=== PATIENT | female | born 1970 | race Caucasian/White ===

== ENCOUNTER 2020-07-20 09:00 | Outpatient (RCR) | payer OTHER, SELFPAY ==
--- NOTE | 2020-05-10 09:09 | OTOPEVAL ---
OCCUPATIONAL THERAPY EVALUATION 05/10/2020 Thank you for referring Yana Dixon to [facility].? The patient is scheduled to be seen for therapy?2x/week for 3 weeks. Please review, sign, date and return this plan of care NAA. I agree with and certify that the following plan of care is medically necessary. Referring Physician Date Referring Provider: Lise Mejía NP *OT Outpatient Evaluation Start: 05/10/20 08:04 Freq: Status: Active Protocol: Document 05/10/20 08:05 PIETER (Rec: 05/10/20 08:42 PIETER [email or web address]) Therapy Assessment Status Assessment Status Assessment Status Evaluation Evaluation Information Problem Diagnosis (R) radial collateral ligament strain Onset Sep 2019 Cause Overuse Subjective Information Patient reports lifting Query Text:As Reported By Patient/ weights and then playing Family tennis right after. She has been having lateral elbow pain since. She has difficulties with gripping, lifting, swinging a tennis racket, helping her mom put on arianna hose. Diagnostic Tests X-Rays For This Problem Yes: Negative for acute abnormality Pain Assessment Timing of Pain Assessment Timing of Pain Assessment Assessment Pain Scale Pain Scale Used Numeric (1 - 10) Self Report Pain Assessment Right Elbow(s) Reported Pain Level 0 Pain Description Aching Lowest Pain Intensity 0 Greatest Pain Intensity 6 Pain Aggravating Factors ADL's Other Pain Aggravating Factors Gripping, lifting Pain Score Pain Score 0: Self Report Upper Extremity Range of Motion General Upper Extremity Range of Motion Reason Not Measured WNL/Right Upper Extremity Muscle Strength Testing Scapular/Shoulder Right Shoulder Flexion Strength 5 Normal Shoulder Extension Strength 5 Normal Shoulder Abduction Strength 5 Normal Shoulder Adduction Strength 5 Normal Elbow/Forearm Right Elbow Flexion Strength 5 Normal Elbow Extension Strength 5 Normal Forearm Pronation Strength 5 Normal Forearm Supination Strength 5 Normal Elbow/Forearm Strength Comments (+) pain with supination, rated at 2/10 Wrist Strength Right Wrist Flexion Strength 5 Normal Wrist Extension Strength 5 Normal Wrist Radial Deviation 5 Normal Wrist Strength Comments (+) pain with wrist extension and RD Hand Gri
--- NOTE | 2020-05-30 09:36 | OTOPEVAL ---
OCCUPATIONAL THERAPY RE-EVALUATION REPORT 05/30/2020 Thank you for referring Yana Dixon to [facility]. Continued therapy indicated to progress strengthening and to continue with pain mgmt techniques to facilitate optimal functional use of the right UE.? The patient is scheduled to be seen for therapy? 2x/week for 4weeks. Please review, sign, date and return this plan of care NAA. I agree with and certify that the following plan of care is medically necessary. Referring Physician Date Referring Provider: Lise Mejía NP Therapy Assessment Status Assessment Status Assessment Status Re-evaluation Evaluation Information Problem Diagnosis (R) radial collateral ligament strain Additional Evaluation Detail Felicita has been participating in outpatient OT x3 weeks for right lateral elbow pain. Treatments have consisted of utilizing modalities for pain and inflammation, body mechanics education to reduce varus strain on the right elbow, HEP education, and manual therapy. Subjective Information Patient reports less pain Query Text:As Reported By Patient/ since start of care. She Family specifically notes being able to use her hand to open a jar, soda bottle, and weight lift without being so guarded. She reports that she has returned to doing light activities without pain, but heavy tasks continue to cause pain in the elbow. She also reports good understanding of proper body mechanics while weight lifting to avoid varus stress on the right elbow. Pain Assessment Timing of Pain Assessment Timing of Pain Assessment Re-assessment Pain Scale Pain Scale Used Numeric (1 - 10) Self Report Pain Assessment Right Elbow(s) Reported Pain Level 0 Pain Description Aching,Dull Lowest Pain Intensity 0 Greatest Pain Intensity 5 Pain Aggravating Factors Lifting Other Pain Aggravating Factors heavy lifting, light activities no longer cause 5/ 10 pain like before Pain Relief Interventions Used By Heat,Inactivity/Rest Patient Pain Score Pain Score 0: Self Report Upper Extremity Range of Motion General Upper Extremity Range of Motion Reason Not
--- NOTE | 2020-06-27 08:04 | OTOPEVAL ---
OCCUPATIONAL THERAPY RE-EVALUATION REPORT 06/27/2020 Thank you for referring Yana Dixon to [facility].? The patient is scheduled to be seen for continued therapy? 1-2x/week for 3 weeks. Please review, sign, date and return this plan of care NAA. I agree with and certify that the following plan of care is medically necessary. Referring Physician Date Referring Provider: Lise Mejía NP *OT Outpatient Evaluation Evaluation Information Problem Diagnosis (R) radial collateral ligament strain Onset Sep 2019 Cause Overuse Additional Evaluation Detail Felicita has been participating in outpatient OT x7 weeks for right lateral elbow pain. Treatments have consisted of utilizing modalities for pain and inflammation, body mechanics education to reduce varus strain on the right elbow, HEP education, and manual therapy. Subjective Information Patient reports that she has Query Text:As Reported By Patient/ been having less pain while Family increasing (R) UE use. She states that with ADLs her pain gets to 1/10 at worst . She also played pickleball on Thursday with residual pain rated at 3/10 which resolved quickly. She reports that being able to hang clothes in her closet with the (R) UE no longer is painful. She also notes being able to return to normal weight lifting without elbow pain. Pain Assessment Timing of Pain Assessment Timing of Pain Assessment Re-assessment Pain Scale Pain Scale Used Numeric (1 - 10) Self Report Pain Assessment Right Elbow(s) Reported Pain Level 0 Lowest Pain Intensity 0 Greatest Pain Intensity 4 Pain Score Pain Score 0: Self Report Additional Pain Score Comments Patient reports at worst pain experienced while playing pickleball. With light ADLs, her pain at the most is rated at 2/10. Upper Extremity Range of Motion General Upper Extremity Range of Motion Reason Not Measured WNL/Right Upper Extremity Muscle Strength Testing Elbow/Forearm Right Elbow Flexion Strength 5 Normal Elbow Exte
--- NOTE | 2020-07-20 09:36 | OTOPEVAL ---
OCCUPATIONAL THERAPY RE-EVALUATION AND DISCHARGE NOTE 07/20/2020 Patient presents for re-evaluation of right elbow LCL ligament strain after 10 weeks of therapy. She has progressed to having no pain with varus stress to the elbow and has resumed weight lifting. She continues to be guarded, however this is recommended as she could easily reinjure. It is also recommended that she ease back into pickle ball and not return to tennis until she is able to play pickle ball at 100%. Discharging from OT today with therapy goals met and with the patient independent with all materials. Thank you for referring Yana Dixon to [facility].? Please review, sign, date and return this Discharge Note NAA. I agree with and certify that the following plan of care is medically necessary. Referring Physician Date Referring Provider: Lise Mejía NP *OT Outpatient Evaluation Start: 05/10/20 08:04 Freq: Status: Active Protocol: Document 07/20/20 09:03 PIETER (Rec: 07/20/20 09:35 PIETER [email or web address]) Evaluation Information Problem Diagnosis (R) radial collateral ligament strain Onset Sep 2019 Cause Overuse Additional Evaluation Detail Felicita has been participating in outpatient OT x10 weeks for right lateral elbow pain. Treatments have consisted of utilizing modalities for pain and inflammation, body mechanics education to reduce varus strain on the right elbow, HEP education, strengthening, and manual therapy. Subjective Information Patient reports that she has Query Text:As Reported By Patient/ been having no pain with light Family to moderately heavy ADLs. She reports that being able to hang clothes in her closet with the (R) UE no longer is painful. She continues to be guarded with the activities. She has returned to normal weight lifting without pain also. Pain Assessment Timing of Pain Assessment Timing of Pain Assessment Re-assessment Pain Scale Pain Scale Used Numeric (1 - 10) Self Report Pain Assessment Right Elbow(s) Reported Pain Level 0 Lowest Pain Intensity 0 Greatest Pain Intensity 3 Pain Aggravating Factors Lifting Pain Score Pain Score 0: Self Report Additional Pain Score Comments Had a lengthy discussion with the patient today regarding
== END 2020-07-20 12:21 | disposition home or self-care (01) ==
LOC: ANHOT 09:00
PROVIDERS: PCP Family Medicine
DX: M25.521 Pain in right elbow (principal)
CPT/HCPCS: 97018; 97035; 97110; 97140; 97165

== ENCOUNTER 2021-11-07 08:19 | Outpatient (CLI) | payer OTHER, SELFPAY ==
--- NOTE | ~2021-11-07 | US_ITS ---
EXAMINATION: US art doppler w press LE BI DATE: 11/07/2021 09:39 INDICATION: Peripheral arterial occlusive disease to the bilateral lower limbs TECHNIQUE: Segmental pressures and plethysmographic and Doppler waveforms of the brachial and lower e xtremity arteries were obtained. COMPARISON: None. FINDINGS: Right and left brachial artery pressures of 118 mm Hg and 127 mm Hg, respectively, are concordant (no rmal difference <= 30 mmHg). The right and left high-thigh pressure indices are 1.39 and 1.56, respec tively (normal > 1.2). The right ankle-brachial index (KELSEA) is 1.20 (normal >= 0.9-1). The right great toe-brachial index (T BI) is 0.56 (normal >= 0.6-0.8). The right lower extremity segmental pressure gradients are increased between the right dorsalis pedis artery and each of the right [id number] popliteal artery, the r ight posterior tibial artery and the contralateral left dorsalis pedis artery (normal gradients <= 20 -30 mmHg between adjacent levels on the same leg or the same levels on the two legs). Arterial wavefo shaquille are triphasic with brisk systolic upstrokes throughout the arteries of the right lower limb. The left KELSEA is 1.25. The left TBI is 0.61. The left lower extremity segmental pressure gradients are normal. Arterial waveforms are triphasic with brisk systolic upstrokes throughout the arteries of th e left lower limb. IMPRESSION: 1. Mild arterial occlusive disease with normal bilateral ABIs but mildly decreased right and borderli ne left TBIs. Reviewed, dictated and finalized at location [facility] IMPRESSION: 1. Mild arterial occlusive disease with normal bilateral ABIs but mildly decrea sed right and borderline left TBIs.
== END 2021-11-07 08:20 | disposition home or self-care (01) ==
PROVIDERS: PCP Family Medicine; Visit Provider Podiatrist Foot & Ankle Surgery
DX: I73.9 Peripheral vascular disease, unspecified (principal)
CPT/HCPCS: 93923

== ENCOUNTER 2024-12-20 07:51 | Outpatient (CLI) | payer OTHER, SELFPAY ==
--- NOTE | ~2024-12-20 | US_ITS ---
EXAMINATION: US art doppler w press LE BI DATE: 12/20/2024 08:45 INDICATION: Peripheral arterial occlusive disease. TECHNIQUE: Segmental pressures and plethysmographic and Doppler waveforms of the brachial and lower e xtremity arteries were obtained. COMPARISON: None. FINDINGS: Right and left brachial artery pressures of 139 mm Hg and 149 mm Hg, respectively, are concordant (no rmal difference <= 30 mmHg). The right ankle-brachial index (KLESEA) is 1.04 (normal >= 0.9-1). The right great toe-brachial index (T BI) is 0.89 (normal >= 0.6-0.8). Arterial waveforms are triphasic at the right common femoral artery and biphasic at the right popliteal, posterior tibial and dorsalis pedis arteries with brisk systolic upstrokes throughout. The left KELSEA is 1.05. The left TBI is 0.68. Arterial waveforms are triphasic at the left common femor al and popliteal arteries and biphasic at the left posterior tibial and dorsalis pedis arteries with brisk systolic upstrokes throughout. . IMPRESSION: 1. No significant arterial occlusive disease with normal bilateral ABIs and TBIs Reviewed, dictated and finalized at location B. IMPRESSION: 1. No significant arterial occlusive disease with normal bilateral ABIs and TBI s
--- OUTSIDE RECORDS SUMMARY | 2024-12-20 08:07 | XMS_ITS | Encounter Summary ---
Author Organization [facility] Address [facility] [place] [address] Care Team Providers Care Theatre Director Name Role Phone Ap Camarillo MD Primary Care Provider [phone] Carlos Baker MD Unavailable [phone] Shabnam Farnsworth MD Primary Care Provider Encounter Details Date Type Department Care Team (Late st Contact Info) Description 12/17/2016 Abstract [facility] Conversion , Generic Conversion, Social History Tobacco Use Types Packs/Day Years Used Date Smoking Tobacco: Former Cigarettes Q uit: 1997 Smokeless Tobacco: Never Alcohol Use Standard Drinks/Week Comments No 0 (1 standard drink = 0.6 oz pur e alcohol) Comments Unknown Sex and Gender Information Value Date Recorded Sex Assigned at Not on file 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 Gender Identity Not on file Sexual Orientation Not on file 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 on file Not on file Not on file documented as of this encounter Plan of Treatment Not on file documented as of this encounter Visit Diagnoses Not on filedocumented in this encounter Care Teams Theatre Director Relationship Specialty Start Date End Date Ap Camarillo MD PCP - General FAMILY PRACTICE 10/29/16 12/09/23 Shabnam Farnsworth MD [address] [place] [address] [place] [address] PCP - General FAMILY PRACTICE 12/10/23 Carlos Baker MD [facility]. [address] [address] Kvng Inspector Of Dredging CARDIOVASCULAR DISEASE 10/29/16 documented as of this encounter
--- OUTSIDE RECORDS SUMMARY | 2024-12-20 08:07 | XMS_ITS | Clinical Summary ---
Author Organization [facility] [employer] Address [address] [facility] [place] [address] Care Team Providers Care Engraver Automatic Name Role Phone Shabnam Farnsworth MD Primary Care Provider [phone] Source Comments [facility] [employer],non-owned Affiliates and Associated Physician Practices is amultiple site organization consisting of ambulatory clinics and hospital sitesin [place], [place], [place] and [place]. This disclosure is being madepursuant to the Care Everywhere program and may not contain all information available regarding this patient. Last updated 18.[facility] [employer] Allergies Active Allergy Reactions Criticality Noted Date Comments Benzoyl Peroxide Swelling,Skin Reactions 2023 Sulfa Drugs Urticaria Medium 05/23/2024 Medications * Be aware that medications may not be up to date on this document. Alwaysverify current medications with the patient. Medication Sig Dispensed Refills Start Date End Date Status losartan (Cozaar) 50 MG tablet Take 1 (one) tablet by mouth once daily 04/11/2024 Active levothyroxine (Synthroid) 137 MCG tablet Take 1 (one) tablet by mouth daily before breakfast 01/21/2024 Active venlafaxine XR 24hr (Effexor XR) 150 MG capsule Take 1 (one) capsule by mouth once daily Active ALPRAZolam (Xanax) 0.25 MG tablet Take 1 (one) tablet by mouth 2 times daily as needed 02/16/2024 Active cetirizine (Cetirizine HCl Childrens) 5 MG/5ML Take 5 mL by mouth once daily Active melatonin 1 MG tablet Take 1 (one) tablet by mouth at bedtime Active Multiple Vitamin (Multi-Vitamin) TABS Take 1 (one) tablet by mouth once daily Active tamsulosin (Flomax) 0.4 MG capsule Take 1 (one) capsule by mouth once daily At the same time every day after a meal. 90 capsule 06/02/2024 Active Active Problems Problem Noted Date Diagnosed Date Hypothyroidism 07/16/2020 Overview (05/23/2024): Last Assessment & Plan: TSH normal. Continue levothyroxine 137 mcg daily. Asymptomatic. Will get TSH reflex. Dyslipidemia 04/23/2020 Essential hypertension 04/23/2020 Overview (05/23/2024): Last Assessment & Plan: Normotensive and controlled. Her blood pressure has been under control since she lost weight. She was on metoprolol succinate which was discontinued last year by her sheet cutting operator. Advised to continue low-cholesterol/salt diet. Exercise and stay active. Monitor BP once in a while. She is a nurse. Obstructive sleep apnea 12/13/2018 Overview (05/23/2024): Last Assessment & Plan: Patient stopped using her CPAP machine since she lost weight. She continues to weigh around 190 pounds from 290 pounds and feels good about it. States she sleeps well with more energy. Anxiety 09/16/2018 Overview (05/23/2024): Last Assessment & Plan: In good spirits. She seldom takes Xanax. She takes it as needed whenever she is very anxious. Last Assessment & Plan: Stable and controlled. In good spirits. Continue Effexor as ordered. She takes Xanax as needed only and very occasionally and not to be abused. Aware of adverse effects. Depression 09/16/2018 Overview (05/23/2024): Last Assessment & Plan: Patient has been having some on and off mood swings lately. Effexor was increased to 150 mg daily from 75 mg daily and so far is doing well with increased dose. Denies suicidal ideation and self-harm. Last Assessment & Plan: In good spirits. Denies any suicidal ideation/self-harm. Continue Effexor 150 mg daily. Mixed hyperlipidemia 09/16/2018 Overview (05/23/2024): Last Assessment & Plan: Lipid panel well controlled. Patient is very active. She watches her diet closely and strictly. She lost tremendous weight from 290 to 190 now. Advised to continue with diet and exercise. We will continue to monitor. Last Assessment & Plan: Last lipid panel better. LFTs normal. Not any statins. Continue diet and exercise. Will get routine blood test/labs. Consider statins if indicated. CPAP (continuous positive airway pressure) depen dence 12/28/2017 Bladder pain 01/22/2017 Increased frequency of urination 01/22/2017 Arthralgia of hip 01/22/2017 Urinary urgency 01/22/2017 Asymptomatic hyperuricemia 01/31/2014 Elevated ALT measurement 01/31/2014 Obesity 01/13/2014 Esophageal reflux 01/03/2013 Overview (05/23/2024): Last Assessment & Plan: Well-controlled. She only takes OTC Nexium as needed. She has been doing well since she lost weight. Continue GERD precautions. Last Assessment & Plan: Stable and controlled. Currently now off PPIs and doing well without. She takes OTC antacid as needed. Continue GERD precautions. 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 Social History Tobacco Use Types Packs/Day Years Used Date Smoking Tobacco: Former Cigarettes Tobacco Cessation:Counseling Given: No Alcohol Use Standard Drinks/Week Comments Not Currently 0 (1 standard drink = 0.6 oz pur e alcohol) Sex and Gender Information Value Date Recorded Sex Assigned at Female 05/22/2024 7:04 PM CDT Gender Identity Female 05/22/2024 7:04 PM CDT Sexual Orientation Not on file Last Filed Vital Signs Vital Sign Reading Time Taken Comments Blood Pressure 100/46 05/23/2024 3:39 PM CDT Pulse 73 05/23/2024 3:39 PM CDT Temperature 36.3 C (97.3 F) 05/23/2024 3:39 PM CDT Respiratory Rate - - Oxygen Saturation 99% 05/23/2024 3:39 PM CDT Inhaled Oxygen Concentration - - Weight 100.1 kg (220 lb 9.6 oz) 05/23/2024 3:39 PM CDT Height 172.7 cm (5' 8 ) 05/23/2024 3:39 PM CDT Body Mass Index 33.54 05/23/2024 3:39 PM CDT Plan of Treatment Health Maintenance Due Date Last Done Comments COLOGUARD (AGES 45-75) - COLON CA SCREENING 1968 COLON MONITORING 1968 COLONOSCOPY - COLON CA SCREENING 1968 CT COLONOGRAPHY - COLON CA SCREENING 1968 Colorectal Cancer Screening 1968 FIT - COLON CA SCREENING 1968 FLEX SIG - COLON CA SCREENING 1968 PAP SMEAR 1968 HIV SCREENING 02/07/1983 HEPATITIS C SCREENING 02/03/1986 DTAP/TDAP/TD VACCINES (1 - Tdap) 02/07/1987 HEPATITIS B VACCINE (1 of 3 - 19+ 3-dose series) 02/07/1987 PNEUMOCOCCAL VACCINE 50+ (1 of 1 - PCV) 02/07/2018 ZOSTER VACCINE (1 of 2) 02/07/2018 SCREENING FOR DIABETES 05/24/2024 COVID-19 VACCINE ( season) 2024 07/30/2021, 11/16/2020, 10/26/2020 INFLUENZA VACCINE (#1) 2024 , 07/16/2020, 07/06/2018, Additional history exists DEPRESSION SCREENING 09/28/2024 MAMMOGRAM 12/02/2025 12/03/2023, 03/0 03/2024, 12/03/2023, Additional history exists LIPID TESTING 03/23/2029 03/23/2024 HIB VACCINE Aged Out No longer eligi ble based on patient's age to complete this topic HPV VACCINE Aged Out No longer eligi ble based on patient's age to complete this topic MENINGOCOCCAL (Group B) VACCINE SHARED DECISION-MAKING Aged Out No longer eligible based on patient's age to complete this topic MENINGOCOCCAL GROUPS A/C/Y/W VACCINE Aged Out No longer eligible based on patient's age to complete this topic Care Teams Engraver Automatic Relationship Specialty Start Date End Date Shabnam Farnsworth MD [facility] [facility], [address] [facility] [address] [place], [place] [id number] PCP - General Family Medicine 05/20/24
--- OUTSIDE RECORDS SUMMARY | 2024-12-20 08:07 | XMS_ITS | CONTINUITY OF CARE DOCUMENT ---
Author Name pramod benavidez Address Unknown Organization [facility] Address [address] [facility] [address] [place] [address] Phone [phone] Care Team Providers Care Diagnostic Assistant Name Role Phone Donita Berkowitz MD Unavailable Donita Berkowitz MD Unavailable INSURANCE PROVIDERS Payer name Policy type / Coverage type [place] red libertarian [email or web address] insurance [employer] [id number] TREATMENT PLAN Date Name Complete Echo
--- OUTSIDE RECORDS SUMMARY | 2024-12-20 08:07 | XMS_ITS | Encounter Summary ---
Author Organization [facility] Address [facility] [place] [address] Care Team Providers Care Long Haul Truck Driver Name Role Phone Carlos Baker MD Unavailable [phone] Shabnam Farnsworth MD Primary Care Provider [phone] Encounter Details Date Type Department Care Team (Late st Contact Info) Description 02/01/2024 [employer] Message Enc [facility] Family Medicine - [address], [address] [place] [id number] Shabnam Farnsworth MD [address] [facility] [address] [place] [address] Ascending aortic aneurysm Social History Tobacco Use Types Packs/Day Years Used Date Smoking Tobacco: Former Cigarettes 1 5 0 09/28/1992 - 09/28/1997 Passive Smoke Exposure: Past Smokeless Tobacco: Never Comments:na Passive Exposure Comments:cigarette smoker Alcohol Use Standard Drinks/Week Comments No 0 (1 standard drink = 0.6 oz pur e alcohol) PHQ-2 Answer Date Recorded Patient Health Questionnaire-2 Score 0 12/10/2023 Comments No Sex and Gender Information Value Date Recorded Sex Assigned at Not on file 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 Shabnam Farnsworth Sent: 02/01/2024 3:55 PM CDT Subject: Ascending aortic aneurysm Thank you for commenting Dr. Farnsworth. I did have some concerns/questions. I had a brother who from a brain aneurysm, would this put me at greater risk? 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 Does that put me at greater risk? This aneurysm was no where kit found in 201 7 and is now 4.2 cm. Does that seem fast growing to you? In 2018 I started a wellness journey and have stayed mostly on track since. I just don???t know why this would have happened? Lastly, I like to lift weights and take long hikes in remote areas. Should I curtail my activities? What about cardio activities? Sorry this is a lot. If you???d rather I make an appointment just say so. Thanks so much! documented in this encounter Plan of Treatment Not on file documented as of this encounter Visit Diagnoses Not on filedocumented in this encounter Additional Health Concerns Assessment Noted Time PHQ-9 Depression Total Score: 3 12/10/19 24 4:43 PM CDT documented as of this encounter Care Teams Long Haul Truck Driver Relationship Specialty Start Date End Date Shabnam Farnsworth MD [address] [place] [address] [place] [address] PCP - General FAMILY PRACTICE 12/10/23 Carlos Baker [facility] [address] [place] [address] [place] Test Engineering Technician CARDIOVASCULAR DISEASE 10/29/16 documented as of this encounter
--- OUTSIDE RECORDS SUMMARY | 2024-12-20 08:07 | XMS_ITS | Encounter Summary ---
Author Organization [facility] Address [address] [place] [id number] Care Team Providers Care Bone Plant Supervisor Name Role Phone Ap Camarillo MD Primary Care Provider [phone] Carlos Baker MD Unavailable [phone] Shabnam Farnsworth MD Primary Care Provider [phone] Encounter Details Date Type Department Care Team (Late st Contact Info) Description 12/19/2016 Abstract [facility] AT [address] [address] Shine Mcknight MA Social History Tobacco Use Types Packs/Day Years Used Date Smoking Tobacco: Former Cigarettes Q uit: 1997 Smokeless Tobacco: Never Alcohol Use Standard Drinks/Week Comments No 0 (1 standard drink = 0.6 oz pur e alcohol) Comments Unknown Sex and Gender Information Value Date Recorded Sex Assigned at Not on file 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 Gender Identity Not on file Sexual Orientation Not on file 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 on file Not on file Not on file documented as of this encounter Plan of Treatment Not on file documented as of this encounter Procedures Procedure Name Priority Date/Time Associated Diagnosis Comments COMPREHENSIVE METABOLIC PANEL Routine 09/14/2017 HEMOGLOBIN, GLYCOSYLATED Routine 09/14/2017 THYROID STIM HORMONE TSH Routine 09/14/2017 LIPID PANEL Routine 11/11/2016 documented in this encounter Results * COMPREHENSIVE METABOLIC PANEL (09/14/2017) SODIUM S/P/B 141 POTASSIUM S/P/B 4.6 CO2 26 CHLORIDE S/P/B 109 GLUCOSE 112 mg/dL CALCIUM S/P/B 9.1 BUN 10 CREATININE S/P/B 0.77 0.5 - 1.0 EGFR AFR. AMER. >60 <=90 EGFR NON-AFR. AMER. >60 <=90 ALKALINE PHOSPHATASE S/P/B 80 ALT 32 AST 21 BILIRUBIN TOTAL S/P/B 0.7 ALBUMIN S/P/B 4.0 3.5 - 5.0 TOTAL PROTEIN S/P/B 6.4 09/14/2017 [facility] Final Result * THYROID STIM HORMONE, TSH (09/14/2017) TSH 0.358 09/14/2017 [facility] Final Result * HEMOGLOBIN, GLYCOSYLATED (09/14/2017) HGB A1C 5.8 09/14/2017 [facility] Final Result * LIPID PANEL (11/11/2016) CHOLESTEROL 234 HDL 37 TRIGLYCERIDES 209 LDL (CALCULATED) 155 11/11/2016 [facility] Final Result documented in this encounter Visit Diagnoses Not on filedocumented in this encounter Care Teams Bone Plant Supervisor Relationship Specialty Start Date End Date Ap Camarillo MD PCP - General FAMILY PRACTICE 10/29/16 12/09/23 Shabnam Farnsworth MD [address] [place] [address] [address] [place] [address] PCP - General FAMILY PRACTICE 12/10/23 Carlos Baker MD Three [facility]. [address] [place] [address] [place] Vocational Nursing Instructor CARDIOVASCULAR DISEASE 10/29/16 documented as of this encounter
--- OUTSIDE RECORDS SUMMARY | 2024-12-20 08:07 | XMS_ITS | Encounter Summary ---
Author Organization [facility] Address [address] [place] [address] Care Team Providers Care Paper Cap Machine Operator Name Role Phone Carlos Baker MD Unavailable [phone] Shabnam Farnsworth MD Primary Care Provider [phone] Encounter Details Date Type Department Care Team (Late st Contact Info) Description 04/28/2024 [employer] Message Enc [facility] Family [facility] - [place] 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 [address] [place], [place] [id number] [place] Urology Surgeon CARDIOVASCULAR DISEASE 10/29/16 documented as of this encounter
--- OUTSIDE RECORDS SUMMARY | 2024-12-20 08:07 | XMS_ITS | Clinical Summary ---
Author Organization [facility] Address [address] [address] Care Team Providers Care Supervisor [employer] Name Role Phone Adi Recio MD Unavailable [phone] Stephanie York MD Unavailable [phone] Shabnam Farnsworth MD Primary Care Provider + Lexi Escobar RN Unavailable Albina vailable Allergies Active Allergy Reactions Criticality Noted Date Comments Benzoyl Peroxide Dermatitis,Rash,Oth er (See comments),Swelling Medium 10/24/1985 Other Reaction(s): Skin Reactions Epinephrine Other (See comments) Low 07/28/2018 Cannot tolerate involuntary shaking, uses Lido without Epi at dentist Shellfish Derived Other (See comments) Low 11/19/2003 Sulfa (Sulfonamide Antibiotics) Hives,Itching,Rash, Other (See comments) High 05/19/1994 Reaction: Hives, Other Reaction(s): Other (see comments) Reaction: Hives, Reaction: Hives, Medications ALPRAZolam (XANAX) 0.25 mg tablet TAKE 1 TABLET 3 TIMES DAILY NEEDED. Active venlafaxine XR (EFFEXOR-XR) 150 mg 24 hr capsule Take 1 capsule (150 mg total) by mouth daily 2 Active cetirizine (ZyrTEC) 1 mg/mL syrup Take 5 mL (5 mg total) by mouth daily Active estradioL (ESTRACE) 0.01 % (0.1 mg/gram) vaginal cream APPLY 1 GRAM VAGINALLY DAILY 4 Active losartan (COZAAR) 50 mg tablet Take 1 tablet (50 mg total) by mouth daily 4 Active melatonin tablet Take 20 tablets (20 mg total) by mouth daily Active pravastatin (PRAVACHOL) 10 mg tablet 4 Active levothyroxine (SYNTHROID) 137 mcg tablet 5 Active Active Problems Problem Noted Date Diagnosed Date Infiltrate of lower lobe of right lung present on imaging study 10/26/2024 Sjogren's syndrome, with unspecified organ invol vement 10/18/2024 Gastric diverticulum 10/18/2024 Dyslipidemia 04/23/2020 Chest pain 04/23/2020 Palpitations 04/23/2020 H/O mammogram 04/23/2020 Essential hypertension 04/23/2020 Overview (04/23/2020): Last Assessment & Plan: Normotensive and controlled. Her blood pressure has been under control since she lost weight. She was on metoprolol succinate which was discontinued last year by her linter operator. Advised to continue low-cholesterol/salt diet. Exercise and stay active. Monitor BP once in a while. She is a nurse. Papanicolaou smear 04/23/2020 Obstructive sleep apnea 12/13/2018 Overview (04/23/2020): Last Assessment & Plan: Patient stopped using her CPAP machine since she lost weight. She continues to weigh around 190 pounds from 290 pounds and feels good about it. States she sleeps well with more energy. Depression 09/16/2018 Overview (04/23/2020): Last Assessment & Plan: Patient has been having some on and off mood swings lately. Effexor was increased to 150 mg daily from 75 mg daily and so far is doing well with increased dose. Denies suicidal ideation and self-harm. Anxiety 09/16/2018 Overview (04/23/2020): Last Assessment & Plan: In good spirits. She seldom takes Xanax. She takes it as needed whenever she is very anxious. Other specified hypothyroidism 09/16/2018 Overview (04/23/2020): Last Assessment & Plan: Most recent TSH normal. Continue levothyroxine 125 mcg daily. Will get routine blood test next visit including TSH. Mixed hyperlipidemia 09/16/2018 Overview (04/23/2020): Last Assessment & Plan: Lipid panel well controlled. Patient is very active. She watches her diet closely and strictly. She lost tremendous weight from 290 to 190 now. Advised to continue with diet and exercise. We will continue to monitor. Mammogram abnormal 07/28/2018 CPAP (continuous positive airway pressure) depen dence 12/28/2017 Post-nasal drip 07/03/2017 Myofascial pain 01/22/2017 Pain in female pelvis 01/22/2017 Arthralgia of hip 01/22/2017 Bladder pain 01/22/2017 Increased frequency of urination 01/22/2017 Urinary urgency 01/22/2017 Acute sinusitis 11/24/2014 Acute laryngitis 11/24/2014 Hoarseness 11/24/2014 Serum potassium elevated 09/15/2014 Elevated ALT measurement 01/31/2014 Asymptomatic hyperuricemia 01/31/2014 Obesity 01/13/2014 Esophageal reflux 01/03/2013 Overview (04/23/2020): Last Assessment & Plan: Well-controlled. She only takes OTC Nexium as needed. She has been doing well since she lost weight. Continue GERD precautions. 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 Beat knee 06/24/2012 Knee pain 06/16/2012 Encounters Date Type Department Care Team Description 12/15/19 25 1:50 PM CDT - 12/15/19 25 11:59 PM CDT Hospital Encounter [facility] [address] [place] [address] Screening mammogram, encount er for Discharge Disposition: Discharge to home or self care 12/10/19 25 Telephone [facility] Ophthalmology [address] [place] [address] Cecy Holden MD new pt sched 12/08/19 25 Telephone [facility] with [facility] Physicians [address] [place] [address] Ana Mckeon NP 11/30/19 Telephone [facility] Neurosurgery [address] [facility] Floor 1, [address] [place] [address] Ana Mckeon NP 11/29/19 Telephone [facility] Neurology [address] [facility] [address] [place] [phone] Cameron Matthews MD 11/25/19 Telephone [facility] Neurology [facility] [facility] [address] [place] [phone] Cameron Matthews MD MRI RESULTS (MRI RESULTS ) 11/25/19 25 Orders Only [facility] Cardiothoracic Surgery [address] [place] [address] Medicine 8th Floor [address] Room [address] [place] [phone] Dariana Brothers MD Quadricuspid aortic valve (Primary Dx) 11/25/19 25 Orders Only [facility] Cardiothoracic Surgery [address] [place] [address] Advanced Medicine 8th Floor [address] Room [address] [place] [phone] Dariana Brothers MD Aortic valve insufficiency, etiology of cardiac valve disease unspecified (Primary Dx) 11/25/19 25 Documentation [facility] Pulmonary [address] [facility] Advanced [facility] 8th [place] [address] [place] [address] Janet Griffin MD 11/24/19 7:31 PM [facility]NER - 11/24/19 11:59 PM [facility] Hospital Encounter [facility] [address] [place] [address] Ocular migraine Discharge Disposition: Discharge to home or self care 11/23/19 3:58 PM [facility] SK[facility]NER - 11/23/19 11:59 PM [facility] Hospital Encounter [facility] [address] [place] [address] Discharge Disposition: Discharge to home or self care 11/23/19 11:00 AM [facility]NER Office Visit [facility] Surgery [address] [facility] [address] [place] [phone] Dariana Brothers MD Aneurysm of ascending aorta without rupture 11/23/19 25 Orders Only [facility] Cardiothoracic Surgery [address] [facility] Advanced Medicine 8th Floor [address] [address] [place] [address] Dariana Brothers MD Ascending aortic aneurysm, unspecified whether ruptured (Primary Dx) 11/21/19 25 Telephone [facility] Minimally Invasive Surgery [address] [place] [address] Medical Office Building [address] [place] [address] Dieter Correa MD PhD 11/16/19 12:00 PM [facility]INNER Procedure visit [facility] Neuro Sleep [address] [facility] 6th Floor [address] [place] [address] Obstructive sleep apnea 11/15/19 25 9:00 AM [facility]INNER Office Visit [facility] Neurology [facility] [address] [place] [address] aCmeron Matthews MD Empty sella (Primary Dx); Ocular migraine; Intracranial aneurysm 11/11/19 25 2:30 PM SL[facility]K SKINNER - 11/11/19 25 3:00 PM [facility]NER Surgery [facility] Digestive Disease [address] [address] Buck Baron MD ESOPHAGOGASTRODUODENOSCOPY oa/ls 11/11/19 25 2:09 PM [facility] SKINNER Anesthesia Event [facility] Digestive Disease [address] [address] Sudeep Sanchez MD 11/11/19 25 12:58 PM [facility]K SKINNER - 11/11/19 25 4:45 PM [facility]NER Hospital Encounter [facility] Digestive Disease [address] [address] Buck Baron MD Discharge Disposition: Discharge to home or self care 11/04/19 25 Telephone [facility] [address] [place] [address] Nicolasa Tariq RN GI PROCEDURE 7 DAY PRE CALL 11/04/19 Telephone [facility] Neurology [address] [facility] [address] [place] [phone] Provider, MD Stanislaw Scheduling Appointments (REFERRAL APPOINTMENT ) 10/26/19 11:00 AM [facility] SKINNER Office Visit [facility] Pulmonary [address] [facility] Advanced Medicine 8th [place] [address] [place] [address] Janet Griffin MD Obstructive sleep apnea (Primary Dx); Infiltrate of lower lobe of right lung present on imaging study; Autoimmune disease 10/26/19 10:37 AM SLUNK SKINNER - 10/26/19 11:59 PM [facility] SKINNER Hospital Encounter [facility] [address] [place] [address] Discharge Disposition: Discharge to home or self care 10/26/19 9:00 AM [facility]UNK SKINNER - 10/26/19 11:59 PM [facility]INNER Hospital Encounter [facility] Pulmonary [address] [place] [address] [address] [place] [address] Infiltrate of lower lobe of right lung present on imaging study Discharge Disposition: Discharge to home or self care 10/26/19 Orders Only [facility] Pulmonary [address] [place] [address] [facility] 8th [place] [address] [place] [address] Janet Griffin MD Infiltrate of lower lobe of right lung present on imaging study (Primary Dx) 10/25/19 Telephone [facility] [address] [place] [address] Patrizia Amador, RN GI Preprocedure 10/18/19 9:00 AM [facility]INNER Office Visit [facility] Neurosurgery [address] [place] [address] Advanced [facility] 6th [place] [address] [place] [address] Ana Mckeon NP Cerebral aneurysm, nonruptured; Sjogren's syndrome, with unspecified organ involvement; Nonintractable headache, unspecified chronicity pattern, unspecified headache type 10/18/19 7:11 AM SLUNK SKINNER - 10/18/19 11:59 PM [facility]NER Hospital Encounter [facility] [address] [place] [address] Infiltrate of lower lobe of right lung present on imaging study Discharge Disposition: Discharge to home or self care 10/18/19 Telephone [facility] ([facility]) - [facility] Minimally Invasive Surgery [address] [facility] 12th Floor, [place] [phone] Briseida Lexi, MA 10/18/19 Orders Only [facility]) - [facility] Minimally Invasive Surgery [address] [facility] 12th Floor, [place] [address] Dieter Correa MD PhD Gastric diverticulum (Primary Dx) 10/18/19 Telephone [facility] Neurosurgery [address] [facility] Floor 1, [address] [place] [address] Ana Mckeon NP 10/10/19 3:15 PM [facility] SKINNER Office Visit [facility] Surgery [id number] [place] [address] Medical Office Building [address] [place] [address] Reed Casanova MD Gastric diverticulum (Primary Dx); Fibromuscular dysplasia 10/10/19 Telephone [facility] Neurosurgery [facility] [facility] Floor 1, [address] [place] [address] Ana Mckeon NP 10/06/19 12:30 PM [facility] SKINNER Office Visit [facility] Neurosurgery [address] [place] [address] 6th [place] [address] [place] [address] Ana Mckeon NP Infiltrate of lower lobe of right lung present on imaging study (Primary Dx); Giant intracranial aneurysm; Diverticulum, gastric; Sjogren's syndrome, with unspecified organ involvement; Carotid artery aneurysm 09/30/19 1:21 PM SL[facility]K SKINNER - 09/30/19 11:59 PM [facility]K SKINNER Hospital Encounter [facility] Imaging and Radiology [address] [place] [address] Aneurysm of ascending aorta without rupture Discharge Disposition: Discharge to home or self care 09/30/19 1:15 PM SLUNK SKINNER - 09/30/19 11:59 PM [facility]INNER Hospital Encounter [facility] Vascular Lab [address] [place] [address] Carotid artery aneurysm Discharge Disposition: Discharge to home or self care 09/29/19 25 2:54 PM [facility] SKINNER - 09/29/19 11:59 PM [facility]NER Hospital Encounter [facility] [address] [place] [address] Discharge Disposition: Discharge to home or self care 09/26/20 24 Telephone [facility] Scheduling [address] [place] [address] BotelloBarbLiss 09/26/20 24 Orders Only [facility] Surgery [address] [facility] Medical Office Building [address] [place] [address] Reed Casanova MD Fibromuscular dysplasia (Primary Dx) from Last 3 Months Immunizations Immunization Administration Dates Next Due DTP 02/26/1973, 9,1968,04/18 Hep B Vaccine 06/23/2014,04/05/2012,03/05/2012 Influenza, Quadrivalent, Sherie l Culture-based MDCK, Preservative Free, Antibiotic Free, Intramuscular 07/06/2019 Influenza, Quadrivalent, Spl it, Preservative Free, Intramuscular 07/16/2020,07/06/2018,06/22/2017 Influenza, Trivalent, IM (MDV) 07/24/2014 Influenza, Unspecified 07/08/2024,08/13/2021 MMR 07/02/1998 Moderna SARS-CoV-2 Monovalen t Vaccination (12+ YRS) 10/26/2020 Mumps 04/09/1973 OPV 04/09/1973, 9,1968,06/20,1968 OPV, Unspecified 04/09/1973, 9,1968,06/20,1968 Rubella 08/09/1969 Td, adsorbed 07/02/1998,05/06/1983 Tdap 03/05/2012 Surgical History Surgery Date Site/Laterality Comments THYROIDECTOMY, PARTIAL Thyroid Surgery Substernal Thyroidectomy Partial - (Added by TW Conv) [place] CHOLECYSTECTOMY Cholecystectomy - (Added by TW Conv) CHOLECYSTECTOMY KNEE SURGERY 2010 and 2004 Bilateral meniscus BREAST BIOPSY 07/30/2018 Left BREAST BIOPSY 07/30/2018 Left BREAST BIOPSY 02/11/2019 Right Medical History Medical History Date Comments Hypertension Depression Overweight Thyroid disease Vitiligo Hyperlipidemia Hypothyroidism Raynaud's disease Restless leg syndrome FABY (generalized anxiety disorder) 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 followed by neurosurgeon Family History Medical History Relation Name Comments Heart disease Father Family history of cardiac disorder - (Added by TW Conv) Hypertension Father Family history of hypertension - (Added by TW Conv) Osteoporosis Father Family history of osteoporosis - (Added by TW Conv) Hypertension Mother Family history of hypertension - (Added by TW Conv) Osteoporosis Mother Family history of osteoporosis - (Added by TW Conv) Asthma Sister Family history of asthma - (Added by TW Conv) Relation Name Status Comments Father Mother Sister Social History Tobacco Use Types Packs/Day Years Used Date Smoking Tobacco: Former Smokeless Tobacco: Never Tobacco Cessation:Counseling Given: Not Answered Alcohol Use Standard Drinks/Week Comments Yes 0 (1 standard drink = 0.6 oz pur e alcohol) AUDIT-C Answer Date Recorded Q1: How often do you have a drink containing alcohol? Never 11/11/2024 Q2: How many drinks containi ng alcohol do you have on a typical day when you are drinking? Patient does not drink Q3: How often do you have si x or more drinks on one occasion? Never 11/11/2024 Personal Safety Answer Date Recorded Have you ever been in or are you currently in a harmful physical or emotional relationship or is someone making you feel afraid or unsafe? Denies 11/11/2024 Comments No Sex and Gender Information Value Date Recorded Sex Assigned at Not on file Legal Sex Female 8:57 AM SLUNK SKINNER Gender Identity Not on file Sexual Orientation Not on file Obstetrics History Last Filed Vital Signs Vital Sign Reading Time Taken Comments Blood Pressure 128/74 11/23/2024 11:43 AM [facility] SKINNER Pulse 88 11/23/2024 11:43 AM [facility]INNER Temperature 36.2 C (97.2 F) 11/11/2024 2:25 PM SLUNK SKINNER Respiratory Rate 16 11/15/2024 8:50 AM SLUNK SKINNER Oxygen Saturation 97% 11/23/2024 11:43 AM [facility]UNK SKINNER Inhaled Oxygen Concentration - - Weight 108 kg (238 lb) 11/24/2024 7:43 PM [facility]K SKINNER Height 172.7 cm (5' 8 ) 11/24/2024 7:43 PM [facility]UNK SKINNER Body Mass Index 36.19 11/24/2024 7:43 PM SLUNK SKINNER Plan of Treatment Health Maintenance Due Date Last Done Comments Cervical Cancer Screening 1968 Colon Cancer Screening-Colonoscopy 1968 Depression Screening 1968 Hepatitis C Screening 1968 Regular Well Visit/Exam 18-64 02/07/1986 Zoster Vaccine (1 of 2) 02/07/2018 DTaP/Tdap/Td Vaccine (6 - Td or Tdap) 03/05/2022 03/05/2012, 07/02/1998, 05/06/1983, Additional history exists Covid-19 Vaccine ( season) 2024 07/30/2021, 11/16/2020, 10/26/2020 Breast Cancer Screening-Mammogram 12/14/2025 12/14/2024, 12/03/2023, 09/08/2022, Additional history exists Hepatitis B Screening Completed 06/23/2014 , 04/05/2012, 03/05/2012 Influenza Vaccine Completed 07/08/2024, , 07/16/2020, Additional history exists Pneumococcal vaccine <65 Aged Out No longer eligible based on patient's age to complete this topic Procedures Procedure Name Priority Date/Time Associated Diagnosis Comments SCREENING MAMMOGRAM BILATERA L W KENNETH Schedule Routine, Read Routine (OP Routine) 12/14/2024 2:05 PM CDT Screening mammogram, encounter for MRI BRAIN W WO CONTRAST Schedule Routine, Read Routine (OP Routine) 11/24/2024 8:49 PM SL[facility]K SKINNER Ocular migraine US TRANSFER OF OUTSIDE FILMS Routine 3:58 PM [facility] SK[facility]NER PORTABLE/HOME SLEEP STUDY Routine 2024 10:00 PM [facility]UNK SKINNER Obstructive sleep apnea EGD 11/11/2024 2:08 PM [facility]K SK[facility]NER ESOPHAGOGASTRODUODENOSCOPY Open Access 11/11 2:08 PM SLUNK SKINNER Gastric diverticulum Special Needs Please complete before 12/14/24 XR CHEST PA LATERAL 2 VIEWS Schedule Routine, Read Routine (OP Routine) 10/26/2024 10:40 AM [facility]UNK SKINNER Infiltrate of lower lobe of right lung present on imaging study PULMONARY FUNCTION TEST (PFT) Routine 9:40 AM SLUNK SKINNER Infiltrate of lower lobe of right lung present on imaging study CTA HEAD NECK W WO CONTRAST Routine 09/29 8:08 AM SLUNK SKINNER Infiltrate of lower lobe of right lung present on imaging study POCT CREATININE - DEVICE Routine 025 7:29 AM SLUNK SKINNER US CAROTIDS DUPLEX BILATERAL Schedule Routine, Read Routine (OP Routine) 09/30/2024 2:49 PM [facility] SKINNER Carotid artery aneurysm CTA CHEST ABDOMEN PELVIS Schedule Routine, Read Routine (OP Routine) 09/30/2024 2:17 PM [facility] SKINNER Aneurysm of ascending aorta without rupture NEURO CT OUTSIDE REFERENCE Routine 09/29 2:54 PM SLUNK SKINNER Diagnosis unknown from Last 3 Months Results * Screening Mammogram Bilateral W Kenneth (12/14/2024 2:05 PM CDT) Anatomical Region Laterality Modality Breast Bilateral Mammography Narrative 12/15/2024 10:40 AM CDT Mammogram Technique: Bilateral Digital Breast Tomosynthesis, Bilateral C-view 2D Screening mammogram. Views obtained: bilateral craniocaudal and bilateral mediolateral oblique. Computer Aided Detection was performed. Mammogram Findings: The present examination has been compared to prior imaging studies performed at [facility] on 08/30/2021, 09/08/2022 and 12/03/2023. There are scattered areas of fibroglandular density. There is no suspicious abnormality in either breast. Impression: There is no mammographic evidence of malignancy. Annual screening mammography is recommended. OVERALL FINAL ASSESSMENT: BI-RADS CATEGORY 1: Negative. Procedure Note Mercy Vera MD - 12/15/2024 Mammogram Technique: Bilateral Digital Breast Tomosynthesis, Bilateral C-view 2D Screening mammogram. Views obtained: bilateral craniocaudal and bilateral mediolateral oblique. Computer Aided Detection was performed. Mammogram Findings: The present examination has been compared to prior imaging studies performed at [facility] on 08/30/2021, 09/08/2022 and 12/03/2023. There are scattered areas of fibroglandular density. There is no suspicious abnormality in either breast. Impression: There is no mammographic evidence of malignancy. Annual screening mammography is recommended. OVERALL FINAL ASSESSMENT: BI-RADS CATEGORY 1: Negative. us Self Screening Mammogram IMG MAMMO PROCEDURES Fi nal Result * MRI Brain W WO Contrast (11/24/2024 8:49 PM SLUNK SKINNER) Anatomical Region Laterality Modality Head and Neck N/A Magnetic Resonan ce 11/25/2024 11:4 4 AM [facility]UNK SKINNER Impressions 11/25/2024 12:20 PM [facility]UNK SKINNER Partially empty sella. Otherwise normal MRI of the pituitary gland. Dictated by: Lm Casarez M.D. The radiology attending physician has personally reviewed this study, and had reviewed and/or edited this written report and agrees with it. Electronically signed by: Kacy Lala M.D. Narrative 11/25/2024 12:20 PM [facility]NER EXAMINATION: Magnetic resonance imaging (MRI) of the brain and brainstem without and with contrast. HISTORY: 54 years-old Female with ocular migraine. Partially empty sella. TECHNIQUE: Multiplanar multi-weighted MRI of the brain and brainstem was performed without without and with intravenous contrast using the pituitary protocol. This included acquisitions showing dynamic contrast enhancement of the sella turcica in the coronal plane and a post-contrast T1-Stealth sequence. Contrast information: 20 mL Gadoterate Meglumine COMPARISON: CTA of head and neck 10/18/2024, 03/23/2024 FINDINGS: Mild posterior deviation of the infundibulum with inferior displacement of the diaphragm sella posteriorly. No abnormal enhancement or lesion in the pituitary. The optic chiasm and orbits are normal. There is no abnormal contrast enhancement. The scalp and calvarium are normal. The dural venous sinuses are patent. The corpus callosum is normal in shape and signal intensity. 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 There is no crowding of the brainstem. The brainstem and craniocervical junction are unremarkable. The ventricles are normal in size and position without evidence of hydrocephalus. The paranasal sinuses are normal. The visualized portions of the mastoids are unremarkable. The orbits appear normal. Normal flow voids are demonstrated in the carotid arteries and basilar artery. 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 Procedure Note Kacy Llaa MD - 11/25/2024 EXAMINATION: Magnetic resonance imaging (MRI) of the brain and brainstem without and with contrast. HISTORY: 54 years-old Female with ocular migraine. Partially empty sella. TECHNIQUE: Multiplanar multi-weighted MRI of the brain and brainstem was performed without without and with intravenous contrast using the pituitary protocol. This included acquisitions showing dynamic contrast enhancement of the sella turcica in the coronal plane and a post-contrast T1-Stealth sequence. Contrast information: 20 mL Gadoterate Meglumine COMPARISON: CTA of head and neck 10/18/2024, 03/23/2024 FINDINGS: Mild posterior deviation of the infundibulum with inferior displacement of the diaphragm sella posteriorly. No abnormal enhancement or lesion in the pituitary. The optic chiasm and orbits are normal. There is no abnormal contrast enhancement. The scalp and calvarium are normal. The dural venous sinuses are patent. The corpus callosum is normal in shape and signal intensity. 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 There is no crowding of the brainstem. The brainstem and craniocervical junction are unremarkable. The ventricles are normal in size and position without evidence of hydrocephalus. The paranasal sinuses are normal. The visualized portions of the mastoids are unremarkable. The orbits appear normal. Normal flow voids are demonstrated in the carotid arteries and basilar artery. 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 IMPRESSION: Partially empty sella. Otherwise normal MRI of the pituitary gland. Dictated by: Lm Casarez, M.D. The radiology attending physician has personally reviewed this study, and had reviewed and/or edited this written report and agrees with it. Electronically signed by: Kacy Lala M.D. us Cameron Matthews MD IMG MRI PROCEDURES Final Resul t * US Outside Reference (11/23/2024 3:58 PM [facility]) Impressions [facility] - 11/23/2024 3:58 PM [facility] These images are for Reference purposes only and have not been reviewed by [facility]. There will be no report generated by a [facility] Radiologist. Narrative RAD_PACS[facility] - 11/23/2024 3:58 PM [facility] EXAMINATION: Images For Reference Purposes Only us Dariana Brothers MD IMG US PROCEDURES Final Result [facility]PACS[facility] * PORTABLE/HOME SLEEP STUDY (11/16/2024 10:00 PM [facility]) Narrative Janet Griffin MD - 11/16/2024 10:00 PM [facility] Janet Griffin MD 11/25/2024 7:24 AM Portable/Home Sleep Study Date/Time: 11/16/2024 10:00 PM Performed by: Janet Griffin MD Authorized by: Janet Griffin MD us Janet Griffin MD SLEEP CENTER ORDERABLES Aurelia l Result * EGD (11/11/2024 2:08 PM [facility]) Anatomical Region Laterality Modality Other Narrative Procedure Note Buck Baron MD - 11/11/2024 2:08 PM [facility]ST [facility] Patient Name: Yana Dixon Procedure Date: 11/11/2024 2:08 PM Date of : 1970 Admit Type: Outpatient Age: 54 Gender: Female Attending MD: Buck Baron M.D. Room: [facility] ENDOSCOPY ROOM 9 Note Status: Finalized Procedure: Upper GI endoscopy Indications: Abnormal CT of the GI tract; Recent CT with gastric fundus diverticulum Referring MD: Dieter Correa M.D. Providers: Buck Baron M.D. Comorbidities See the other procedure note for documentation of comorbidities Medicines: Monitored Anesthesia Care Complications: No immediate complications. Estimated Blood Loss: Estimated blood loss: none. Procedure: Pre-Anesthesia Assessment: - Prior to the procedure, a History and Physicalwas performed, and patient medications, allergies and sensitivities were reviewed. The patient'stolerance of previous anesthesia was reviewed. - Immediately prior to administration ofmedications, the patient was re-assessed for adequacy to receive sedatives. The benefits, risks, and alternatives to theprocedure and sedation were discussed and informed consentwas obtained. The scope was passed under direct vision. The GIF [id number] endoscope was introduced through the mouth, and advanced to the second partof duodenum. The upper GI endoscopy was accomplished without difficulty. The patient tolerated the procedure well. Findings: The esophagus was normal with the gastroesophageal junction noted at41 cm from the incisors. A 40 mm non-bleeding diverticulum was found in the gastric fundus, roughly 3 cm distal to the gastroesophageal junction. This contained food residue that was cleared. Healthy appearing mucosa was noted. The stomach was otherwise normal save for scattered, small sessile polyps in the fundus/body with the endoscopic appearance of fundicgland polyps. The examined duodenum was normal. Impression: - Normal esophagus. - A 40 mm non-bleeding diverticulum was found inthe gastric fundus, roughly 3 cm distal to the gastroesophageal junction. This contained foodresidue that was cleared. Healthy appearing mucosa wasnoted. - The stomach was otherwise normal save forscattered, small sessile polyps in the fundus/body with the endoscopic appearance of fundic gland polyps. - Normal examined duodenum. - No specimens collected. Recommendation: - The patient will be observed post-procedure,until all discharge criteria are met. - Observe patient's clinical course. - Continue present medications. - Resume previous diet. - Return to referring physician as previously scheduled. - In the unusual situation that you developabdominal, bleeding or other significant problems in the days following this procedure please call [phone] ask for my nurse, Cassandra Silva. After hours and evenings please call [phone] and speak to theGI fellow promotion writer. Please tell the fellow that Dr. Baron did your procedure and that you were instructed to have the fellow call me or thephysician covering for me to discuss the management of your condition. If you have an urgent problem, please goto the nearest emergency room and have the ER doctorcall my office during the day or [facility] transfer ([phone]) center after hours and weekends to arrange admission or transfer to our facility. Attending Participation: I personally performed the entire procedure. Electronically signed by Buck Baron MD Buck Baron M.D. 11/11/2024 2:36:57 PM . Number of Addenda: 0 Note Initiated On: 11/11/2024 2:08 PM us Buck Baron MD ENDOSCOPY PROCEDURES Final Result * XR Chest Pa Lateral 2 Views (10/26/2024 10:40 AM [facility]) Anatomical Region Laterality Modality Body, Chest N/A Computed Radiogr aphy 10/26/2024 10:4 3 AM [facility] Impressions 10/26/2024 10:43 AM [facility] No prior radiographs are available for comparison. Lungs are clear. No pleural effusion. No pneumothorax. Normal heart size. Electronically signed by: Catherine Serrano M.D. Narrative 10/26/2024 10:43 AM [facility] EXAMINATION: 2 view chest radiograph Procedure Note Catherine Serrano MD - 10/26/2024 EXAMINATION: 2 view chest radiograph IMPRESSION: No prior radiographs are available for comparison. Lungs are clear. No pleural effusion. No pneumothorax. Normal heart size. Electronically signed by: Catherine Serrano M.D. Janet Griffin MD IMG XR PROCEDURES Final Resu lt * Pulmonary Function Test - (10/26/2024 9:40 AM [facility]) FVC PRE 4.07 L [facility] FVC %PRE PRED 117 % [facility] FEV1 PRE 3.15 L [facility] FEV1 %PRE PRED 114 % [facility] FEV1/FVC PRE 77.4 % [facility] DLCO PRE 26.5 ml/min/mmH g [facility] DLCO %PRE PRED 122 % [facility] Anatomical Region Laterality Modality PFT 10/26/2024 9:15 AM [facility] Narrative 10/26/2024 3:35 PM [facility] Table formatting from the original result was not included. [facility] Division of Pulmonary & Critical Care Medicine [address] [place] [address]; [address]; [place] [address]; [phone] Pulmonary Function Laboratory Pulmonary Stress Test Simple/Oxygen Assessment Patient: Yana Dixon Date: 10/26/2024 : 1970 Ht: 65 IN Wt: 236 LBS Time (min) Distance (ft)/ [place] O2 L/M SpO2 HR Lucas* BP FEV1 % Pred Rest: RA 98 77 0 115/68 3.15 114 % Walk/Bike: 1 RA 96 89 0 2 RA 97 92 0 3 RA 97 94 0 4 RA 97 97 0 5 RA 98 96 0 6 min 0 sec RA 98 100 0 Recovery: 1 RA 98 101 0 100/69 3.25 118% 3 RA 98 85 0 *Lucas rate of perceived exertion (1-10 dyspnea scale) Costa, CHEST 2003; 123:1408 Walk Test Summary: Six Minute Walk Distance: 1350 ft Six-minute Walk Work [distance (m) x body wt (kg)]: 08300 kg.m (normal >60,000kg.m) Oxygen required to maintain SpO2 greater than 90% during six minutes of walkin L/M Comments: O2A Interpretation: Breathing room air, SpO2 is normal at rest and during exercise sufficient to increase pulse, SpO2 is stable. On this basis, SpO2 is adequate at rest breathing room air and while walking breathing room air. This level of exercise is associated with no significant change of FEV1. By signing this report, the attending pulmonary physician certifies that he/she has personally reviewed and interpreted the graphic and numerical data associated with this pulmonary function study and has reviewed and /or edited a preliminary draft report and agrees with the written final report. PFT performed at:->[facility] Adult PFT Lab- [facility] Procedure:->Oxygen Assessment Titration Procedure:->Spirometry Procedure:->DLCO DLCO:->Spirometry Pulmonary Function Test Interpretation SPIROMETRY: Spirometry is normal. The flow volume loop is normal. DLCO: The diffusing capacity is increased. An increased diffusing capacity may be due to left ventricular failure, asthma, or obesity. Impression: There is no ventilatory defect. There is no impairment of alveolar gas exchange by DLCO. The attending pulmonary physician certifies a physician presence in the [facility] during the administration of aerosolized bronchodilator. The attending pulmonary physician certifies that he/she has reviewed and interpreted the graphic and numerical data of this pulmonary function study and agrees with the written final report. The lower limit of normal for PaO2 and %HbO2 is age dependent. However, the [facility] Pulmonary Function Laboratory defines hypoxemia as a PaO2 <56 mm Hg or a %HbO2 <89%. Starting on September of 2024 the [facility] Pulmonary Function Laboratory utilizes race neutral [employer] normative equations. us Janet D. Elias MD PFT ORDERABLES Final Result * CTA Head Neck W WO Contrast (10/18/2024 8:08 AM [facility]) Anatomical Region Laterality Modality Head and Neck N/A Computed Tomogra phy 10/18/2024 8:55 AM [facility] Impressions 10/18/2024 10:41 AM [facility] 1. No acute intracranial process. 2. 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 Dictated by: Mercy Spears MD, PhD. The radiology attending physician has personally reviewed this study, and had reviewed and/or edited this written report and agrees with it. Electronically signed by: Juice Floyd MD Narrative 10/18/2024 10:41 AM [facility] EXAMINATION: 1. Computed tomography angiography (CTA) of the head without and with contrast 2. Computed tomography angiography (CTA) of the neck with contrast HISTORY: 54-year-old female with a history of right cavernous carotid artery aneurysm. TECHNIQUE: CT of the head was performed with images acquired from skull base to vertex without intravenous contrast. Computed tomographic angiography was then obtained from the aortic arch to the vertex following the uneventful administration of intravenous contrast. 3D images were generated on a dedicated workstation. Contrast information: 93 mL Optiray-350 COMPARISON: Comparison is made to prior CT angiogram dated 03/23/2024. FINDINGS: HEAD: There is no acute intracranial hemorrhage. Ventricles are of normal size and morphology. No mass effect or midline shift is present. The case-white matter differentiation is normal. Partially empty sella. The visualized portions of the orbits are normal. The visualized portions of the mastoids are normal. The visualized portions of the paranasal sinuses are normal. The frontal sinuses are hypoplastic. No fractures are identified. Dental restorations. NECK: Scattered subcentimeter lymph nodes are seen in the neck. None are pathologically enlarged. The muscles of the neck are normal. Fascial planes are preserved and the deep spaces of the neck are normal. The visualized airway is widely patent. There is mild anterior subluxation of C5 on C6. The spinal canal is normal in caliber. Intervertebral disk heights are normal. Neural foramina are normal. Limited examination of the superior thorax shows no pulmonary infiltrate, suspicious nodules, or pleural effusions. CTA: The visualized aortic arch appears normal with normal configuration of the great vessels. The innominate artery and both subclavian arteries are normal in course and caliber. The common carotid arteries are normal in course and caliber with normal carotid bifurcations bilaterally. The course and caliber of the internal carotid arteries in the neck are normal. No areas of atherosclerotic narrowing or filling defects are identified. There is a wide neck, inferomedially projecting irregular 4 x 3 x 3 mm aneurysm (AP X TV X CC) arising from the right cavernous internal carotid artery, unchanged. Mildly tortuous left cervical internal carotid artery. The visualized course and caliber of the internal carotid arteries in the head are otherwise normal. No areas of atherosclerotic narrowing or filling defects are identified. The [id number] is complete. The anterior and middle cerebral arteries are normal. The left vertebral artery is dominant. The basilar artery is normal. The posterior cerebral arteries are normal. There is no aneurysm or vascular malformation identified. Procedure Note Juice Floyd MD PhD - 10/18/2024 EXAMINATION: 1. Computed tomography angiography (CTA) of the head without and with contrast 2. Computed tomography angiography (CTA) of the neck with contrast HISTORY: 54-year-old female with a history of right cavernous carotid artery aneurysm. TECHNIQUE: CT of the head was performed with images acquired from skull base to vertex without intravenous contrast. Computed tomographic angiography was then obtained from the aortic arch to the vertex following the uneventful administration of intravenous contrast. 3D images were generated on a dedicated workstation. Contrast information: 93 mL Optiray-350 COMPARISON: Comparison is made to prior CT angiogram dated 03/23/2024. FINDINGS: HEAD: There is no acute intracranial hemorrhage. Ventricles are of normal size and morphology. No mass effect or midline shift is present. The case-white matter differentiation is normal. Partially empty sella. The visualized portions of the orbits are normal. The visualized portions of the mastoids are normal. The visualized portions of the paranasal sinuses are normal. The frontal sinuses are hypoplastic. No fractures are identified. Dental restorations. NECK: Scattered subcentimeter lymph nodes are seen in the neck. None are pathologically enlarged. The muscles of the neck are normal. Fascial planes are preserved and the deep spaces of the neck are normal. The visualized airway is widely patent. There is mild anterior subluxation of C5 on C6. The spinal canal is normal in caliber. Intervertebral disk heights are normal. Neural foramina are normal. Limited examination of the superior thorax shows no pulmonary infiltrate, suspicious nodules, or pleural effusions. CTA: The visualized aortic arch appears normal with normal configuration of the great vessels. The innominate artery and both subclavian arteries are normal in course and caliber. The common carotid arteries are normal in course and caliber with normal carotid bifurcations bilaterally. The course and caliber of the internal carotid arteries in the neck are normal. No areas of atherosclerotic narrowing or filling defects are identified. There is a wide neck, inferomedially projecting irregular 4 x 3 x 3 mm aneurysm (AP X TV X CC) arising from the right cavernous internal carotid artery, unchanged. Mildly tortuous left cervical internal carotid artery. The visualized course and caliber of the internal carotid arteries in the head are otherwise normal. No areas of atherosclerotic narrowing or filling defects are identified. The [id number]-[id number] is complete. The anterior and middle cerebral arteries are normal. The left vertebral artery is dominant. The basilar artery is normal. The posterior cerebral arteries are normal. There is no aneurysm or vascular malformation identified. IMPRESSION: 1. No acute intracranial process. 2. 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 Dictated by: Mercy Spears MD, PhD. The radiology attending physician has personally reviewed this study, and had reviewed and/or edited this written report and agrees with it. Electronically signed by: Juice Floyd MD us Ana Mckeon [facility] IMG CT PROCEDURES Final Re sult * POCT creatinine (10/18/2024 7:29 AM [facility]) Creatinine POC 0.9 0.6 - 1.1 mg/dL Blood 10/18/2024 7:29 AM [facility] 10/18/2024 7:29 AM [facility] us Self Referral LAB POCT ORDERABLES - DEVICE Fin al Result [facility] Department [place] [address] * US Carotids Duplex Bilateral (09/30/2024 2:49 PM [facility]) Anatomical Region Laterality Modality Vascular Bilateral Ultrasound 09/30/2024 3:09 PM [facility] Impressions 09/30/2024 3:09 PM [facility] 1. Bilateral internal carotid artery stenosis estimated at less than 50%. 2. There is antegrade flow in both vertebral arteries. Electronically signed by: Lm Vail M.D. Narrative 09/30/2024 3:09 PM [facility] EXAMINATION: BILATERAL CAROTID DUPLEX EXAM DATE: 09/30/2024 2:00 PM HISTORY: Small right cavernous carotid artery aneurysm. TECHNIQUE: A bilateral carotid duplex imaging evaluation was performed using grayscale, color and spectral images. NASCET-based methodology was used. FINDINGS: On the right, the common carotid artery peak systolic velocity is 67 cm/s. The right internal carotid artery peak systolic velocities are 72 cm/s proximally, 60 cm/s within the midportion, and 111 cm/s distally. The right internal carotid artery to common carotid artery ratio is 1.7. The estimated percent stenosis of the right internal carotid artery is less than 50%. There is mild smooth plaque at the carotid bifurcation. On the left, the common carotid artery peak systolic velocity is 65 cm/s. The left internal carotid artery peak systolic velocities are 53 cm/s proximally, 82 cm/s within the midportion, and 80 cm/s distally. The left internal carotid artery to common carotid artery ratio is 1.3. The estimated percent stenosis of the left internal carotid artery is less than 50%. There is mild smooth plaque at the carotid bifurcation. Antegrade flow is seen within both vertebral arteries. Procedure Note Lm Vail MD - 09/30/2024 EXAMINATION: BILATERAL CAROTID DUPLEX EXAM DATE: 09/30/2024 2:00 PM HISTORY: Small right cavernous carotid artery aneurysm. TECHNIQUE: A bilateral carotid duplex imaging evaluation was performed using grayscale, color and spectral images. NASCET-based methodology was used. FINDINGS: On the right, the common carotid artery peak systolic velocity is 67 cm/s. The right internal carotid artery peak systolic velocities are 72 cm/s proximally, 60 cm/s within the midportion, and 111 cm/s distally. The right internal carotid artery to common carotid artery ratio is 1.7. The estimated percent stenosis of the right internal carotid artery is less than 50%. There is mild smooth plaque at the carotid bifurcation. On the left, the common carotid artery peak systolic velocity is 65 cm/s. The left internal carotid artery peak systolic velocities are 53 cm/s proximally, 82 cm/s within the midportion, and 80 cm/s distally. The left internal carotid artery to common carotid artery ratio is 1.3. The estimated percent stenosis of the left internal carotid artery is less than 50%. There is mild smooth plaque at the carotid bifurcation. Antegrade flow is seen within both vertebral arteries. IMPRESSION: 1. Bilateral internal carotid artery stenosis estimated at less than 50%. 2. There is antegrade flow in both vertebral arteries. Electronically signed by: Lm Vail M.D. Reed Casanova MD IM US PROCEDURES Final Resu lt * CTA Chest Abdomen Pelvis (09/30/2024 2:17 PM [facility]NER) Anatomical Region Laterality Modality Body N/A Computed Tomogra phy 09/30/2024 2:34 PM [facility]NER Impressions 09/30/2024 2:34 PM [facility]NER Mild wall thickening of the infrarenal abdominal aorta. Possible vasculitis. Mild beading of the SMA branches and bilateral iliac arteries possible fibromuscular dysplasia or vasculitis. Colonic diverticulosis. Minimal right lower lobe tree-in-bud infiltrate. Electronically signed by: Ash Perkins M.D. Narrative 09/30/2024 2:34 PM [facility] EXAMINATION: CTA CHEST ABDOMEN PELVIS DATE: 09/30/2024 1:30 PM HISTORY: Aortic aneurysm suspected TECHNIQUE: Images through the chest, abdomen and pelvis were obtained before and after intravenous contrast administration. Three-dimensional reconstructions were performed. COMPARISON: Prior examinations are not obtained at this institution and are not available for comparison at the time of interpretation. FINDINGS: Ascending thoracic aorta is 41 mm. Aortic valve is not adequately evaluated on this non-gated study. The thoracoabdominal aorta enhances normally. There is no aortic aneurysm or dissection. There is mild atherosclerotic calcification in the aortic arch. There is mild wall thickening of the infrarenal abdominal aorta. Visualized carotid and subclavian arteries are normal. The celiac and renal arteries enhance normally. There is subtle beading of the SMA branches and bilateral external iliac arteries. There is no hemodynamically significant stenosis or occlusion. There is no pleural effusion or pneumothorax. Minimal tree-in-bud infiltrate is noted in the superior segment of the right lower lobe. The heart and mediastinum are normal. There is no pulmonary embolus. There is no axillary or mediastinal adenopathy. The patient is status post cholecystectomy. 42 mm diverticulum is noted at the gastric fundus. The kidneys enhance normally. There are multiple colonic diverticula. 24 mm cyst is noted in the cervix; possible nabothian cyst. Procedure Note Ash Perkins MD - 09/30/2024 EXAMINATION: CTA CHEST ABDOMEN PELVIS DATE: 09/30/2024 1:30 PM HISTORY: Aortic aneurysm suspected TECHNIQUE: Images through the chest, abdomen and pelvis were obtained before and after intravenous contrast administration. Three-dimensional reconstructions were performed. COMPARISON: Prior examinations are not obtained at this institution and are not available for comparison at the time of interpretation. FINDINGS: Ascending thoracic aorta is 41 mm. Aortic valve is not adequately evaluated on this non-gated study. The thoracoabdominal aorta enhances normally. There is no aortic aneurysm or dissection. There is mild atherosclerotic calcification in the aortic arch. There is mild wall thickening of the infrarenal abdominal aorta. Visualized carotid and subclavian arteries are normal. The celiac and renal arteries enhance normally. There is subtle beading of the SMA branches and bilateral external iliac arteries. There is no hemodynamically significant stenosis or occlusion. There is no pleural effusion or pneumothorax. Minimal tree-in-bud infiltrate is noted in the superior segment of the right lower lobe. The heart and mediastinum are normal. There is no pulmonary embolus. There is no axillary or mediastinal adenopathy. The patient is status post cholecystectomy. 42 mm diverticulum is noted at the gastric fundus. The kidneys enhance normally. There are multiple colonic diverticula. 24 mm cyst is noted in the cervix; possible nabothian cyst. IMPRESSION: Mild wall thickening of the infrarenal abdominal aorta. Possible vasculitis. Mild beading of the SMA branches and bilateral iliac arteries possible fibromuscular dysplasia or vasculitis. Colonic diverticulosis. Minimal right lower lobe tree-in-bud infiltrate. Electronically signed by: Ash Perkins M.D. us Reed Casanova MD IMG CT PROCEDURES Final Resu lt * Neuro CT Outside Reference (09/29/2024 2:54 PM [facility]NER) Impressions [facility] - 09/29/2024 2:54 PM [facility] These images are for Reference purposes only and have not been reviewed by [facility]. There will be no report generated by a [facility] Radiologist. Narrative [facility] - 09/29/2024 2:54 PM [facility]NER EXAMINATION: Images For Reference Purposes Only us Ana Mckeon NP IMG CT PROCEDURES Final Re sult [id number] from Last 3 Months Insurance [facility] CMR [facility] C[facility] CMR Advance Directives For more information, please contact: [phone] * Full Code (Latest Code Status on File) Date Activated Date Inactivated Comments 11/11/2024 1:19 PM 11/11/2024 9:23 PM Care Teams Supervisor [employer] Relationship Specialty Start Date End Date Shabnam Farnsworth MD [address] [facility] [address] [place] [id number] PCP - General Family Medicine 10/18/24 Adi Recio MD [address] [id number] Referring Physician Obstetrics and Gynecology 09/08/22 Stephanie York MD [address] [facility] [address] [place] [address] Rheumatology 10/10/24 Lexi Escobar, RN Registered Nurse Pulmonary Disease 10/28/24
--- OUTSIDE RECORDS SUMMARY | 2024-12-20 08:07 | XMS_ITS | Clinical Summary ---
Author Organization [facility] Address [address] [place] [address] Care Team Providers Care Irish Moss Bleacher Name Role Phone Carlos Baker MD Unavailable [phone] Shabnam Farnsworth MD Primary Care Provider [phone] Allergies Active Allergy Reactions Criticality Noted Date Comments Benzoyl Peroxide Swelling 11/28/2016 Benzyl Alcohol Unknown 06/22/2017 Epinephrine Other (see comment) Low 07/28/2018 Cannot tolerate involuntary shaking, uses Lido without Epi at dentist Shellfish-Derived Products Unknown 04/21/2017 Sulfa Antibiotics Hives,Unknown 01/03/2013 Medications fluticasone propionate 50 MCG/ACT nasal spray 1 spray by Nasal route 2 (two) times daily as needed for Rhinitis. 12/19/2016 Active venlafaxine XR 150 MG 24 hr capsule Take 1 capsule (150 mg total) by mouth daily. 02/14/2020 Active ALPRAZolam (XANAX) 0.25 MG tabletIndication s:Anxiety 1 tablet twice daily as needed. 60 tablet 02/16/2024 Active levothyroxine (SYNTHROID) 137 MCG tabletIndication s:Hypothyroidism , unspecified type TAKE 1 TABLET(137 MCG) BY MOUTH EVERY MORNING 90 tablet 2 10/13/2024 Active Active Problems Problem Noted Date Diagnosed Date Chronic right hip pain 01/20/2024 Hypothyroidism, unspecified type 07/16/2020 Assessment & Plan (11/04/2023 10:12 AM RN CHRONIC): TSH normal. Continue levothyroxine 137 mcg daily. Asymptomatic. Will get TSH reflex. Assessment & Plan (03/03/2023 2:02 PM CDT): Agatha: TSH 1.8. Continue same dose of levothyroxine 137 mcg daily. Patient remains asymptomatic. Monitor. Assessment & Plan (11/20/2020 2:21 PM RN CHRONIC): Her last TSH normal. Continue levothyroxine 125 mcg daily. Will get routine blood test occluding TSH this month. Assessment & Plan (07/16/2020 10:33 AM CDT): Last TSH normal. Continue same dose of levothyroxine 125 mcg daily. Repeat TSH sometime in September. Anxiety 09/16/2018 Assessment & Plan (11/04/2023 10:12 AM RN CHRONIC): Stable and controlled. In good spirits. Continue Effexor as ordered. She takes Xanax as needed only and very occasionally and not to be abused. Aware of adverse effects. Assessment & Plan (03/03/2023 2:42 PM CDT): Stable and controlled. In good spirits. Continue Effexor as ordered. She takes Xanax as needed only and very occasional. Not to be abused. Assessment & Plan (10/29/2022 11:14 AM RN CHRONIC): Stable. Anxiety is well controlled. In good spirits. Continue Effexor as previously ordered. She takes Xanax on as-needed basis only and very occasionally not to be abused. Assessment & Plan (02/10/2022 11:29 AM CDT): Stable and controlled. In good spirits. Continue Effexor as previously ordered compliantly. Xanax as needed. Not to be abused. Assessment & Plan (11/05/2021 2:37 PM RN CHRONIC): Stable and well controlled. In good spirits. Continue Effexor as ordered. She takes Xanax as needed very occasionally only. And not to be abused. Assessment & Plan (07/02/2021 3:35 PM CDT): Anxiety is controlled. In good spirits. She takes Xanax very occasionally as needed only. Assessment & Plan (03/19/2021 2:07 PM CDT): A little bit anxious lately. She takes Xanax as needed. Assessment & Plan (11/20/2020 2:21 PM RN CHRONIC): In good spirits. Anxiety is well controlled. States she takes Xanax very occasionally only. Assessment & Plan (07/16/2020 10:42 AM CDT): In good spirits. Currently in Xanax which she takes as needed only and very occasionally whenever she is very anxious. Assessment & Plan (03/13/2020 2:15 PM CDT): In good spirits. She seldom takes Xanax. She takes it as needed whenever she is very anxious. Assessment & Plan (10/18/2019 1:45 PM RN CHRONIC): Well-controlled. In good spirits. She seldom takes Xanax lately. Assessment & Plan (06/16/2019 2:25 PM CDT): She now takes Xanax very occasionally/as needed only. In good spirits. Assessment & Plan (01/19/2019 3:43 PM CDT): In good spirits. Doing well with Xanax. She takes it on as-needed basis only. Assessment & Plan (12/13/2018 1:42 PM CDT): In good spirits. Stable. She is doing well with Xanax on as needed basis only. Assessment & Plan (09/16/2018 4:51 PM RN CHRONIC): Stable. In good spirits. She takes Xanax on as needed basis only. Depression 09/16/2018 Assessment & Plan (11/04/2023 10:12 AM RN CHRONIC): In good spirits. Denies any suicidal ideation/self-harm. Continue Effexor 150 mg daily. Assessment & Plan (03/03/2023 2:41 PM CDT): Denies any suicidal ideation/self-harm. In good spirits. Continue Effexor 150 mg daily. Assessment & Plan (10/29/2022 11:13 AM RN CHRONIC): She continues to do well. In good spirits. Denies suicidal ideation/self-harm. Continue Effexor 150 mg daily. Assessment & Plan (02/10/2022 11:30 AM CDT): In good spirits. Denies any suicidal ideation/harm. Currently on Effexor 150 mg daily. Assessment & Plan (11/05/2021 2:37 PM RN CHRONIC): She denies any suicidal ideation/self-harm. In good spirits. Continue Effexor 150 mg daily. Assessment & Plan (07/02/2021 3:35 PM CDT): In good spirits. Anxiety level is controlled. Denies suicidal ideation/self- harm. Continue Effexor 150 mg daily. Assessment & Plan (03/19/2021 2:08 PM CDT): She has been ill with anxious lately due to her mom's health condition. 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 Denies any suicidal ideation/self-harm. Continue Effexor 150 mg daily compliantly and faithfully. Consider increasing the dose if indicated. Assessment & Plan (11/20/2020 2:21 PM RN CHRONIC): In good spirits. Denies any suicidal ideation/self-harm. She continues to do well. Continue Effexor 150 mg daily. Assessment & Plan (07/16/2020 10:43 AM CDT): In good spirits. Continue Effexor 150 mg daily. Denies suicidal ideation/self- harm. She continues to do well. Assessment & Plan (03/13/2020 2:15 PM CDT): Patient has been having some on and off mood swings lately. Effexor was increased to 150 mg daily from 75 mg daily and so far is doing well with increased dose. Denies suicidal ideation and self-harm. Assessment & Plan (10/18/2019 1:44 PM RN CHRONIC): In good spirits. Denies suicidal ideation/self-harm. Continue Effexor 75 mg daily. Assessment & Plan (06/16/2019 2:25 PM CDT): Doing well with Effexor 75 mg once daily. In good spirits. Denies any suicidal ideation/self-harm. Assessment & Plan (01/19/2019 3:43 PM CDT): In good spirits. She is doing well with Effexor 75 mg once daily. Assessment & Plan (12/13/2018 1:42 PM CDT): In good spirits. Patient is doing well with Effexor 75 mg once daily. Assessment & Plan (09/16/2018 4:52 PM RN CHRONIC): Stable in good spirits. She is doing well with Effexor 75 mg once a day. Mixed hyperlipidemia 09/16/2018 Assessment & Plan (11/04/2023 10:11 AM RN CHRONIC): Last lipid panel better. LFTs normal. Not any statins. Continue diet and exercise. Will get routine blood test/labs. Consider statins if indicated. Assessment & Plan (03/03/2023 2:41 PM CDT): Lipids well controlled and better. LFTs normal. Patient declined statins which she declined. Continue diet and exercise. Monitor. Exercise and lose weight. Assessment & Plan (10/29/2022 11:12 AM RN CHRONIC): Fairly controlled lipid panel. Patient not on statins which she declined. We will go ahead and get routine blood test with a lipid panel. We will recommend again statins if indicated. For now continue low-cholesterol/carbohydrate/salt diet. Exercise, lose weight and stay active. Assessment & Plan (02/10/2022 11:30 AM CDT): Recent lipid panel fairly controlled. Not any statins which she continues to decline. States she has not been watching her diet lately. Advised to always stay on a low-cholesterol/carbohydrate diet. Exercise and stay active. Assessment & Plan (11/05/2021 2:37 PM RN CHRONIC): Total cholesterol 214 with HDL 61 and LDL of 140. Not on any statins which she declined. Continue diet and exercise. Will get routine blood test/labs this coming December. Consider statins if indicated. Assessment & Plan (07/02/2021 3:36 PM CDT): Total cholesterol 214, LDL 140, HDL 61. Patient declined any statins and opted diet and exercise. Continue low-cholesterol/carbohydrate/salt diet. Stay active. We will continue to monitor. Assessment & Plan (03/19/2021 2:09 PM CDT): Total cholesterol 214 with LDL 140, HDL 61, triglycerides 67. Patient is not any statins which she declined. Opted diet and exercise again to control lipids. Advised again to stay on a strict low-cholesterol/carbohydrate diet. Exercise and stay active. We will continue to monitor. Assessment & Plan (11/20/2020 2:20 PM RN CHRONIC): Lipids controlled. LFTs normal. Controlled by diet and exercise now. She is now off any statins. Advised to continue low-cholesterol/carbohydrate/salt diet. Exercise and stay active. Will get routine blood test occluding lipid panel. Consider restarting statins if elevated. Assessment & Plan (07/16/2020 10:42 AM CDT): Lipids controlled. LFTs normal. She is not any statins. Controlled by diet and exercise. Continue low-cholesterol/carbohydrate/salt diet. Assessment & Plan (03/13/2020 2:14 PM CDT): Lipid panel well controlled. Patient is very active. She watches her diet closely and strictly. She lost tremendous weight from 290 to 190 now. Advised to continue with diet and exercise. We will continue to monitor. Assessment & Plan (06/16/2019 2:24 PM CDT): Her lipids now is well controlled with diet and exercise. Advised to continue low-cholesterol/salt diet. Exercise and stay active. We will continue to monitor. Assessment & Plan (01/19/2019 3:42 PM CDT): Lipids well controlled. Patient not on any statins. Controlled with diet and exercise. Assessment & Plan (12/13/2018 1:41 PM CDT): Patient not on any statins. Lipids controlled with diet and exercise. We will continue to monitor. Repeat lipids in December. Assessment & Plan (09/16/2018 4:54 PM RN CHRONIC): Controlled with diet and exercise. Patient's not on any statins. Post-nasal drip 07/03/2017 Serum potassium elevated 09/15/2014 Obesity 01/13/2014 Esophageal reflux 01/03/2013 Assessment & Plan (11/04/2023 10:12 AM RN CHRONIC): Stable and controlled. Currently now off PPIs and doing well without. She takes OTC antacid as needed. Continue GERD precautions. Assessment & Plan (03/03/2023 2:41 PM CDT): Stable and controlled. She takes OTC antacid as needed. She is now currently off PPIs and doing well without. Advised to continue GERD precautions. Assessment & Plan (10/29/2022 11:13 AM RN CHRONIC): Stable and well-controlled. Currently off PPIs and doing well without it. She takes OTC antacid as needed. Continue GERD precautions. Assessment & Plan (02/10/2022 11:29 AM CDT): Stable and controlled. She now takes OTC antacids as needed. Doing well without PPIs. Continue GERD precautions. Assessment & Plan (11/05/2021 2:36 PM RN CHRONIC): Stable and controlled. She stopped taking PPIs. She is now currently on OTC antacids as needed. Continue GERD precautions. Assessment & Plan (07/02/2021 3:34 PM CDT): Stable and controlled with PPIs. She takes OTC antacids and doing well. Continue GERD precautions. Assessment & Plan (03/19/2021 2:06 PM CDT): Stable and well controlled without PPI. She now takes OTC antacids and responding well. She takes it as needed only. Advised to continue GERD precautions. Assessment & Plan (11/20/2020 2:20 PM RN CHRONIC): Stable and well controlled. She now just take OTC antacids as needed. She stopped taking PPI and has been doing well without it. Continue GERD precautions. Assessment & Plan (07/16/2020 10:41 AM CDT): Well-controlled. She is no longer on PPI since she lost weight. So far doing well. She takes OTC antacid as needed and occasionally only. Continue GERD precautions. Assessment & Plan (03/13/2020 1:33 PM CDT): Well-controlled. She only takes OTC Nexium as needed. She has been doing well since she lost weight. Continue GERD precautions. Assessment & Plan (06/16/2019 2:23 PM CDT): Controlled with OTC Nexium as needed only. Continue GERD precautions. Assessment & Plan (01/19/2019 3:41 PM CDT): She takes OTC Nexium as needed only. GERD precautions. Palpitations H/O mammogram Resolved Problems Problem Noted Date Diagnosed Date Resolved Date Obstructive sleep apnea 12/13/2018 06/0 09/2022 Assessment & Plan (10/29/2022 11:14 AM RN CHRONIC): She is no longer using CPAP machine/mask. She stopped it since she lost weight. States she feels great and doing well with more energy. Advised to continue good/proper sleep hygiene. Exercise and stay active. Patient aware of complications of uncontrolled and untreated sleep apnea. Assessment & Plan (02/10/2022 11:28 AM CDT): Patient stopped using her CPAP machine/mask since she lost weight. Advised to continue good/proper sleep hygiene. Exercise and stay active. Lose weight. Patient aware of complications of uncontrolled and untreated sleep apnea. Assessment & Plan (11/05/2021 2:35 PM RN CHRONIC): Since patient lost weight, stop using her CPAP machine. Advised to continue good/proper sleep hygiene. She has more pep and energy. She remains active. Assessment & Plan (07/02/2021 3:33 PM CDT): She stopped using her CPAP machine since she lost weight. States she sleeps well. Has good energy and pep. She is active. Assessment & Plan (03/19/2021 2:05 PM CDT): She continues to do well without her CPAP machine since she lost weight and maintaining her weight around 190s. She used to weigh 300 pounds. She sleeps well at night. Advised to continue good/proper sleep hygiene. She is active. Assessment & Plan (11/20/2020 2:18 PM RN CHRONIC): She continues to do well. She stopped using her CPAP machine since she lost weight. She is maintaining her weight around 190s from almost 300 pounds. States she sleeps well with more energy and pep. Denies snoring. We will continue to monitor. Assessment & Plan (03/13/2020 1:33 PM CDT): Patient stopped using her CPAP machine since she lost weight. She continues to weigh around 190 pounds from 290 pounds and feels good about it. States she sleeps well with more energy. Assessment & Plan (10/18/2019 1:33 PM RN CHRONIC): Patient used to weigh 290 pounds and now is down to 190 pounds. Denies any problem with her sleeping. Denies snoring. She stopped using her CPAP machine. She has an appointment with pulmonology next month and discuss about if she should continue CPAP machine. Assessment & Plan (06/16/2019 2:22 PM CDT): Patient is doing well with CPAP machine. She wears her CPAP mask compliantly. Advised to continue to lose weight. Assessment & Plan (01/19/2019 3:40 PM CDT): She was just seen by Dr. Strange. Continue wearing CPAP mask compliantly. Patient is doing well. Assessment & Plan (12/13/2018 1:49 PM CDT): Stable. She wears her CPAP mask compliantly. Scheduled to see Dr. Strange next month. Other specified hypothyroidism 09/16/2018 03/03/2023 Assessment & Plan (10/29/2022 11:12 AM RN CHRONIC): Her last TSH normal. She remains asymptomatic. Continue levothyroxine 125 mg daily. We will get routine blood test eluding TSH in December. Adjust dose accordingly. Assessment & Plan (02/10/2022 11:29 AM CDT): TSH is normal. Asymptomatic. Continue levothyroxine 125 mcg daily. Assessment & Plan (11/05/2021 2:36 PM RN CHRONIC): Stable. She remains asymptomatic. Continue same dose of levothyroxine 125 mg daily. Will get routine blood test including TSH in December. Assessment & Plan (07/02/2021 3:34 PM CDT): Stable. Asymptomatic. Continue levothyroxine 125 mcg daily. Assessment & Plan (03/19/2021 2:07 PM CDT): December 2020: TSH 4.0 with normal free T4 0.95. Patient is asymptomatic. Continue same dose of levothyroxine 125 mcg daily. Assessment & Plan (03/13/2020 1:33 PM CDT): Most recent TSH normal. Continue levothyroxine 125 mcg daily. Will get routine blood test next visit including TSH. Assessment & Plan (10/18/2019 1:44 PM RN CHRONIC): Last TSH 2.3. Continue same dose of levothyroxine 125 mcg daily. Will get routine blood tests including TSH. Assessment & Plan (06/16/2019 2:24 PM CDT): Recent TSH 2.3. Continue levothyroxine 125 mcg daily. We will continue to monitor TSH. Assessment & Plan (01/19/2019 3:46 PM CDT): TSH 0.25. Will cut down levothyroxine to 100 mcg daily from 150 mcg daily. Repeat TSH in 1 month. Assessment & Plan (12/13/2018 1:41 PM CDT): Recent TSH is back to normal. Currently on levothyroxine 150 mg/day from 175 mcg daily. We will continue to monitor. Repeat TSH in December. Assessment & Plan (09/16/2018 4:50 PM RN CHRONIC): Recent TSH 0.093. Currently on Synthroid 175 mcg once a day.--- Will cut down to 150 mcg a day. Mammogram abnormal 07/28/2018 3 Assessment & Plan (11/20/2020 2:22 PM RN CHRONIC): She had MRI guided biopsy of the right breast which was negative. She was supposed to get a repeat MRI but was canceled due to Covid pandemic. She will reschedule. She goes to [facility]. Assessment & Plan (03/13/2020 1:23 PM CDT): Patient goes to [facility]. She had MRI guided biopsy of the right breast which was negative for malignancy. She has a scheduled appointment sometime in June. Assessment & Plan (06/16/2019 2:18 PM CDT): Had MRI guided biopsy of the right breast which was negative for any cancer. Patient goes to [facility]. Scheduled appointment mid-June. CPAP (continuous positive ai rway pressure) dependence 12/28/2017 02/26/2023 Acute laryngitis 11/24/2014 02/26/2023 Acute sinusitis 11/24/2014 02/26/2023 Hoarseness 11/24/2014 02/26/2023 Asymptomatic hyperuricemia 01/31/2014 0 02/26/2023 Elevated ALT measurement 01/31/201409/2022 Chest pain 02/26/2023 Essential hypertension 02/26 Assessment & Plan (10/29/2022 11:12 AM RN CHRONIC): BP is well controlled. She is no longer taking metoprolol succinate. Doing well without it. Continue diet and exercise. Monitor BP at least 3 times a week twice daily and record. Parameters discussed. 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 Avoid salty foods. Assessment & Plan (02/10/2022 11:29 AM CDT): Normotensive. She is no longer on metoprolol succinate and doing well without it. Continue diet and exercise. Lose weight. Monitor BP and record. She is a nurse. Avoid salty foods. Assessment & Plan (11/05/2021 2:35 PM RN CHRONIC): BP is controlled. Currently off Toprol succinate and doing well without it. Continue diet and exercise. Continue BP monitoring. Patient is a nurse. Avoid salty foods. Assessment & Plan (07/02/2021 3:34 PM CDT): Normotensive and controlled. She has not been taking her Toprol succinate for quite some time and so far is doing well without it. She was again advised to stay active, exercise and avoid salty foods. Assessment & Plan (03/19/2021 2:06 PM CDT): Normotensive. She is maintaining her normal BP since she stopped the Toprol succinate and has been doing well without it. Advised to continue low-cholesterol/salt diet. Continue exercise and stay active. 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 Assessment & Plan (11/20/2020 2:19 PM RN CHRONIC): BP is well controlled. She is currently off any antihypertensives including metoprolol succinate and has been doing well without it. She was again advised to continue low-cholesterol/salt diet, exercise and stay active. Monitor BP at least 3 times a week. Parameters discussed. Patient is a nurse. Assessment & Plan (07/16/2020 10:41 AM CDT): BP controlled. She is now off metoprolol succinate which was discontinued by her blankbook stitching machine operator. Her blood pressure has been normal since she lost weight. Advised to continue low-cholesterol/salt diet. Continue exercise and stay active and lose more weight. Monitor BP at least 3 times a week. Parameters discussed. Patient is a nurse. Assessment & Plan (03/13/2020 2:14 PM CDT): Normotensive and controlled. Her blood pressure has been under control since she lost weight. She was on metoprolol succinate which was discontinued last year by her blankbook stitching machine operator. Advised to continue low-cholesterol/salt diet. Exercise and stay active. Monitor BP once in a while. She is a nurse. Assessment & Plan (10/18/2019 1:44 PM RN CHRONIC): Blood pressure is well controlled. She no longer takes any blood pressure medications including metoprolol succinate was discontinued by her blankbook stitching machine operator. We will continue to monitor blood pressure. Always stay on low cholesterol/salt diet. Continue exercise. Assessment & Plan (06/16/2019 2:22 PM CDT): Normotensive and well controlled. Patient has been off metoprolol succinate for 4 months now and is doing well without it. Blood pressure remains normal and well-controlled. She was released by Dr. Baker/blankbook stitching machine operator. Advised to continue low-cholesterol/salt diet. Exercise and stay active. Monitor BP. Parameters discussed. Patient is a nurse. Assessment & Plan (01/19/2019 3:41 PM CDT): Blood pressure well controlled. Continue metoprolol succinate 50 mg daily. Continue diet and exercise. Scheduled to see Dr. Baker coming January. Assessment & Plan (12/13/2018 1:39 PM CDT): BP controlled. Continue metoprolol succinate 50 mg daily. Diet and exercise. Assessment & Plan (09/16/2018 4:49 PM RN CHRONIC): Controlled. Currently on metoprolol tartrate 50 mg once a day. Dyslipidemia 03/03/2023 Papanicolaou smear 0 Encounters Date Type Department Care Team Description 10/18/2024 Scan [facility] Scanned, [facility] 10/10/2024 Scan [facility] Scanned, Doc [facility] 10/06/2024 Scan [facility] Scanned, Doc [facility] from Last 3 Months Immunizations Name Administration Dates Next Due Dtp 02/26/1973, 9,1968, 968 Fluzone 6 Months+ Quad (0.5 mL Prefilled Syringe) 07/16/2020 Hepatitis B 06/23/2014,04/05/2012,03/05/2012 Influenza (Generic) 07/06/2018,06/22/2017,2013 Influenza Adult (Generic) 08/13/2021,07/06/2018, 06/22/2017 MMR 07/02/1998 MODERNA COVID-19 (12+) MRNA, LNP-S, PF, 100 MCG/ 0.5 ML DOSE 07/30/2021,11/16/2020,10/26/2020 Mumps 04/09/1973 Opv 04/09/1973, 9,1968, 968,1968 Rubella (Generic) 08/09/1969 Td 07/02/1998,05/06/1983 Tdap (Adacel) 03/05/2012 Family History Medical History Relation Comments Stroke Brother Hemorrhages Alcohol Abuse Father CABG Father x2 Early Father Heart disease Heart Disease Father Hyperlipidemia Father Hypertension Father GA Father x3 Valve Disease Father Valve Disease Maternal Grandmother COPD Mother Depression Mother Hyperlipidemia Mother Hypertension Mother GA Paternal Grandfather GA Paternal Grandmother Relation Status Comments Brother Father (Age 64) Maternal Grandmother Mother Alive Paternal Grandfather Paternal Grandmother Social History Tobacco Use Types Packs/Day Years Used Date Smoking Tobacco: Former Cigarettes 1 5 0 09/28/1992 - 09/28/1997 Passive Smoke Exposure: Past Smokeless Tobacco: Never Tobacco Cessation:Counseling Given: No Comments:na Passive Exposure Comments:cigarette smoker Alcohol Use Standard Drinks/Week Comments No 0 (1 standard drink = 0.6 oz pur e alcohol) PHQ-2 Answer Date Recorded Patient Health Questionnaire-2 Score 0 12/10/2023 Comments No Sex and Gender Information Value Date Recorded Sex Assigned at Not on file Legal Sex Female 2:51 PM RN CHRONIC Gender Identity Not on file Sexual Orientation Not on file 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 on file Not on file Not on file Not on file Not on file Not on file Not on file Last Filed Vital Signs Vital Sign Reading Time Taken Comments Blood Pressure 116/64 02/09/2024 3:23 PM CDT Pulse 70 02/09/2024 2:51 PM CDT Temperature 36.9 C (98.4 F) 02/09/2024 2:46 PM CDT Respiratory Rate 17 02/09/2024 2:46 PM CDT Oxygen Saturation 100% 02/09/2024 2:51 PM CDT Inhaled Oxygen Concentration - - Weight 99.6 kg (219 lb 9.6 oz) 02/09/2024 2:46 P M CDT Height 170.2 cm (5' 7 ) 02/09/2024 2:46 PM CDT Body Mass Index 34.39 02/09/2024 2:46 PM CDT Plan of Treatment Health Maintenance Due Date Last Done Comments Cervical Cancer Screening Pap Smear (Age 30 to 64) Every 3 Years 1968 Colorectal Cancer Screening Colonoscopy (10 Years) 1968 Annual Physical 02/07/1971 Hepatitis C 02/07/1986 Cervical Cancer Screening Pap with HPV Testing (Age 30 to 64) Every 5 Years 02/07/1998 Cervical Cancer Screening with HPV 02/07/1998 Zoster Vaccines (1 of 2) 02/07/2018 DTaP, Tdap and Td Vaccines (3 - Td or Tdap) 03/05/2022 03/05/2012, 07/02/1998, 05/06/1983, Additional history exists COVID-19 Vaccine ( season) 2024 07/30/2021, 11/16/2020, 10/26/2020 PHQ-2 (Physician [place]) 09/28/2024 12/10/2023 Mammogram Screening 12/02/2025 12/03/2023, 12/03/2023, 07/29/2021, Additional history exists Hepatitis B Vaccines Completed 06/23/2014, 04/05/2012, 03/05/2012 Influenza Adult Completed 07/08/2024, 07/29, 07/16/2020, Additional history exists Meningococcal B Vaccine Aged Out No l onger eligible based on patient's age to complete this topic Meningococcal Vaccine Aged Out No fredo michelle eligible based on patient's age to complete this topic Pneumococcal Vaccine: Pediatrics (0 to 5 Years) and At-Risk Patients (6 to 64 Years) Aged Out No longer eligible based on patient's age to complete this topic RSV Immunizations Under 20 Months Aged Out No longer eligible based on patient's age to complete this topic Procedures Procedure Name Priority Date/Time Associated Diagnosis Comments MAMMOGRAM GENERIC (SCAN ORDER) 12/03/2023 from Last 3 Months or Most Recently Relevant to Health Maintenance Results * MAMMOGRAM GENERIC (SCAN ORDER) (12/03/2023) Anatomical Region Laterality Modality Other 12/03/2023 [facility] Scanned SCANNING Final Resu lt from Last 3 Months or Most Recently Relevant to Health Maintenance Insurance [employer] Care Teams [employer] Relationship Specialty Start Date End Date Shabnam Farnsworth MD [facility] [address] [place], [place] [id number] PCP - General FAMILY PRACTICE 12/10/23 Carlos Baker MD [facility]. [address] [place] [address] [employer] Manager CARDIOVASCULAR DISEASE 10/29/16
--- OUTSIDE RECORDS SUMMARY | 2024-12-20 08:07 | XMS_ITS | Referral Summary ---
Author Organization [facility] Address [address] [place] [address] Care Team Providers Care Benefits Manager Name Role Phone Adi Recio MD Unavailable [phone] Stephanie York MD Unavailable Shabnam Farnsworth MD Primary Care Provider + Lexi Escobar RN Unavailable Albina vailable Encounters Date Type Department Care Team Description 12/15/19 1:50 PM CDT - 12/15/19 11:59 PM CDT Hospital Encounter [facility] Advanced [facility] ([facility]) [address] [place] [address] Screening mammogram, encount er for Discharge Disposition: Discharge to home or self care 12/10/19 25 Telephone [facility] Ophthalmology [address] [place] [address] Cecy Holden MD new pt sched 12/08/19 25 Telephone [facility] with [facility] Physicians [address] [place] [address] Ana Mckeon NP 11/30/19 25 Telephone [facility] Neurosurgery [address] [facility] Floor 1, [address] [place] [address] Ana Mckeon NP 11/29/19 25 Telephone [facility] Neurology [address] [place] [address] [address] [place] [address] Cameron Matthews MD 11/25/19 Telephone [facility] Neurology [address] [place] [address] [place] [phone] Cameron Matthews MD MRI RESULTS (MRI RESULTS ) 11/25/19 25 Orders Only [facility] Cardiothoracic Surgery [address] [facility] Advanced Medicine 8th Floor [address] [address] [place] [address] Dariana Brothers MD Quadricuspid aortic valve (Primary Dx) 11/25/19 25 Orders Only [facility] Cardiothoracic Surgery [address] [facility] Advanced Medicine 8th Floor [address] [place] [phone] Dariana Brothers MD Aortic valve insufficiency, etiology of cardiac valve disease unspecified (Primary Dx) 11/25/19 Documentation [facility] Pulmonary [address] [facility] Advanced Medicine 8th [place] [address] [place] [address] Janet Griffin MD 11/24/19 7:31 PM COMPOSITE BOND WORKER - 11/24/19 11:59 PM COMPOSITE BOND WORKER Hospital Encounter [facility] [address] [place] [address] Ocular migraine Discharge Disposition: Discharge to home or self care 11/23/19 3:58 PM COMPOSITE BOND WORKER - 11/23/19 11:59 PM COMPOSITE BOND WORKER Hospital Encounter [facility]) [address] [place] [address] Discharge Disposition: Discharge to home or self care 11/23/19 25 Orders Only [facility] Cardiothoracic Surgery [address] [facility] Advanced Medicine 8th Floor [address] [place] [phone] Dariana Brothers MD Ascending aortic aneurysm, unspecified whether ruptured (Primary Dx) 11/23/19 11:00 AM COMPOSITE BOND WORKER Office Visit [facility] Surgery [facility] [facility] [address] [place] [address] Dariana Brothers MD Aneurysm of ascending aorta without rupture 02/24/20 25 Telephone [facility] Minimally Invasive Surgery [address] [facility] Medical Office [address] [place] [address] Dieter Correa MD PhD 11/16/19 12:00 PM COMPOSITE BOND WORKER Procedure visit [facility] Neuro Sleep [address] [facility] 6th Floor [address] [place] [phone] Obstructive sleep apnea 11/15/19 9:00 AM COMPOSITE BOND WORKER Office Visit [facility] Neurology [facility] [facility] [address] [place] [phone] Cameron Matthews MD Empty sella (Primary Dx); Ocular migraine; Intracranial aneurysm 11/11/19 2:30 PM COMPOSITE BOND WORKER - 11/11/19 3:00 PM COMPOSITE BOND WORKER Surgery [facility] Disease [place] [address] [facility] [address] [place] [address] Buck Baron MD ESOPHAGOGASTRODUODENOSCOPY oa/ls 11/11/19 2:09 PM COMPOSITE BOND WORKER Anesthesia Event [facility] Digestive Disease [place] [address] [facility] [address] [place] [address] Sudeep Sanchez MD 11/11/19 12:58 PM COMPOSITE BOND WORKER - 11/11/19 4:45 PM COMPOSITE BOND WORKER Hospital Encounter [facility] Disease [place] [address] [facility] [address] [place] [address] Buck Baron MD Discharge Disposition: Discharge to home or self care 11/04/19 Telephone [facility] Specialty Services [address] [place] [phone] Nicolasa Tariq RN GI PROCEDURE 7 DAY PRE CALL 11/04/19 Telephone [facility] Neurology [facility] [address] [place] [address] Stanislaw Mccullough MD Scheduling Appointments (REFERRAL APPOINTMENT ) 10/26/19 10:37 AM COMPOSITE BOND WORKER - 10/26/19 11:59 PM COMPOSITE BOND WORKER Hospital Encounter [facility] [address] [place] [address] Discharge Disposition: Discharge to home or self care 10/26/19 25 Orders Only [facility] Pulmonary [address] [facility] 8th [place] [address] [place] [phone] Janet Griffin MD Infiltrate of lower lobe of right lung present on imaging study (Primary Dx) 10/26/19 11:00 AM COMPOSITE BOND WORKER Office Visit [facility] Pulmonary [facility] 8th [place] [address] [place] [phone] Janet Griffin MD Obstructive sleep apnea (Primary Dx); Infiltrate of lower lobe of right lung present on imaging study; Autoimmune disease 10/26/19 9:00 AM COMPOSITE BOND WORKER - 10/26/19 11:59 PM COMPOSITE BOND WORKER Hospital Encounter [facility] Pulmonary [address] [facility] [address] [place] [address] Infiltrate of lower lobe of right lung present on imaging study Discharge Disposition: Discharge to home or self care 10/25/19 25 Telephone [facility] Specialty Services [address] [place] [address] Patrizia Amador, RN GI Preprocedure 10/18/[address] [facility] Advanced [facility] Minimally Invasive Surgery [address] [facility] 12th Floor, [place] [phone] Lexi Goins [place] 10/18/19 25 Orders Only [facility] ([facility] Minimally Invasive Surgery [address] [facility] 12th Floor, [place] [phone] Dieter Correa MD PhD Gastric diverticulum (Primary Dx) 10/18/19 25 Telephone [facility] Neurosurgery [address] [facility] Floor 1, [address] [place] [address] Ana Mckeon NP 10/18/19 9:00 AM COMPOSITE BOND WORKER Office Visit [facility] Neurosurgery [address] [facility] 6th [place] [address] [place] [phone] Ana Mckeon NP Cerebral aneurysm, nonruptured; Sjogren's syndrome, with unspecified organ involvement; Nonintractable headache, unspecified chronicity pattern, unspecified headache type 10/18/19 7:11 AM COMPOSITE BOND WORKER - 10/18/19 11:59 PM COMPOSITE BOND WORKER Hospital Encounter [facility]) [address] [place] [address] Infiltrate of lower lobe of right lung present on imaging study Discharge Disposition: Discharge to home or self care 10/10/19 Telephone [facility] Neurosurgery [address] [facility] Floor 1, [address] [place] [address] Ana Mckeon NP 10/10/19 3:15 PM COMPOSITE BOND WORKER Office Visit [facility] Surgery [address] [facility] Medical Office Building [address] [place] [address] Reed Casanova MD Gastric diverticulum (Primary Dx); Fibromuscular dysplasia 10/06/19 12:30 PM COMPOSITE BOND WORKER Office Visit [facility] Neurosurgery [address] [place] [address] Advanced Medicine 6th [place] [address] [place] [phone] Ana Mckeon NP Infiltrate of lower lobe of right lung present on imaging study (Primary Dx); Giant intracranial aneurysm; Diverticulum, gastric; Sjogren's syndrome, with unspecified organ involvement; Carotid artery aneurysm 09/30/19 1:15 PM COMPOSITE BOND WORKER - 09/30/19 11:59 PM COMPOSITE BOND WORKER Hospital Encounter [facility] Vascular Lab [address] [place] [address] Carotid artery aneurysm Discharge Disposition: Discharge to home or self care 09/30/19 1:21 PM COMPOSITE BOND WORKER - 09/30/19 11:59 PM COMPOSITE BOND WORKER Hospital Encounter [facility] Imaging and Radiology [address] [place] [address] Aneurysm of ascending aorta without rupture Discharge Disposition: Discharge to home or self care 09/29/19 25 2:54 PM COMPOSITE BOND WORKER - 09/29/19 25 11:59 PM COMPOSITE BOND WORKER Hospital Encounter [facility]) [address] [place] [address] Discharge Disposition: Discharge to home or self care 09/26/20 24 Telephone [facility] Scheduling [address] [place] [address] Liss Botello 09/26/20 24 Orders Only [facility] Surgery [address] [facility] Medical Office Building [address] [address] Reed Casanova MD Fibromuscular dysplasia (Primary Dx) from Last 3 Months Allergies Active Allergy Reactions Criticality Noted Date [...] which was discontinued last year by her insurance agent. Advised to continue low-cholesterol/salt diet. Exercise and [...] 06/24/2012 Beat knee 06/24/2012 Knee pain 06/16/2012 Immunizations Immunization Administration Dates Next Due DTP [...] Rubella 08/09/1969 Td, adsorbed 07/02/1998,05/06/1983 Tdap 03/05/2012 Social History Tobacco Use Types Packs/Day Years [...] on file Legal Sex Female 8:57 AM COMPOSITE BOND WORKER Gender Identity Not on file Sexual Orientation Not on file Last Filed Vital Signs Vital Sign Reading Time Taken Comments Blood Pressure 128/74 11/23/2024 11:43 AM COMPOSITE BOND WORKER Pulse 88 11/23/2024 11:43 AM COMPOSITE BOND WORKER Temperature 36.2 C (97.2 F) 11/11/2024 2:25 PM COMPOSITE BOND WORKER Respiratory Rate 16 11/15/2024 8:50 AM COMPOSITE BOND WORKER Oxygen Saturation 97% 11/23/2024 11:43 AM COMPOSITE BOND WORKER Inhaled Oxygen Concentration - - Weight 108 kg (238 lb) 11/24/2024 7:43 PM COMPOSITE BOND WORKER Height 172.7 cm (5' 8 ) 11/24/2024 7:43 PM COMPOSITE BOND WORKER Body Mass Index 36.19 11/24/2024 7:43 PM COMPOSITE BOND WORKER Plan of Treatment Not on file Procedures Procedure Name Priority Date/Time Associated Diagnosis Comments SCREENING MAMMOGRAM BILATERA L W KENNETH Schedule Routine, Read Routine (OP Routine) 12/14/2024 2:05 PM CDT Screening mammogram, encounter for MRI BRAIN W WO CONTRAST Schedule Routine, Read Routine (OP Routine) 11/24/2024 8:49 PM COMPOSITE BOND WORKER Ocular migraine US TRANSFER OF OUTSIDE FILMS Routine 3:58 PM COMPOSITE BOND WORKER PORTABLE/HOME SLEEP STUDY Routine 2024 10:00 PM COMPOSITE BOND WORKER Obstructive sleep apnea EGD 11/11/2024 2:08 PM COMPOSITE BOND WORKER ESOPHAGOGASTRODUODENOSCOPY Open Access 11/11 2:08 PM COMPOSITE BOND WORKER Gastric diverticulum Special Needs Please complete before 12/14/24 XR CHEST PA LATERAL 2 VIEWS Schedule Routine, Read Routine (OP Routine) 10/26/2024 10:40 AM COMPOSITE BOND WORKER Infiltrate of lower lobe of right lung present on imaging study PULMONARY FUNCTION TEST (PFT) Routine 9:40 AM COMPOSITE BOND WORKER Infiltrate of lower lobe of right lung present on imaging study CTA HEAD NECK W WO CONTRAST Routine 09/29 8:08 AM COMPOSITE BOND WORKER Infiltrate of lower lobe of right lung present on imaging study POCT CREATININE - DEVICE Routine 025 7:29 AM COMPOSITE BOND WORKER US CAROTIDS DUPLEX BILATERAL Schedule Routine, Read Routine (OP Routine) 09/30/2024 2:49 PM COMPOSITE BOND WORKER Carotid artery aneurysm CTA CHEST ABDOMEN PELVIS Schedule Routine, Read Routine (OP Routine) 09/30/2024 2:17 PM COMPOSITE BOND WORKER Aneurysm of ascending aorta without rupture NEURO CT OUTSIDE REFERENCE Routine 09/29 2:54 PM COMPOSITE BOND WORKER Diagnosis unknown from Last 3 Months Results [...] compared to prior imaging studies performed at [facility] on 08/30/2021, 09/08/2022 and 12/03/2023. There [...] compared to prior imaging studies performed at [facility] on 08/30/2021, 09/08/2022 and 12/03/2023. There are scattered areas of fibroglandular density. There is no suspicious abnormality in either breast. Impression: There is no mammographic evidence of malignancy. Annual screening mammography is recommended. OVERALL FINAL ASSESSMENT: BI-RADS CATEGORY 1: Negative. us Self Screening Mammogram IMG MAMMO PROCEDURES Fi nal Result * MRI Brain W WO Contrast (11/24/2024 8:49 PM COMPOSITE BOND WORKER) Anatomical Region Laterality Modality Head and Neck N/A Magnetic Resonan ce 11/25/2024 11:4 4 AM COMPOSITE BOND WORKER Impressions 11/25/2024 12:20 PM COMPOSITE BOND WORKER Partially empty sella. Otherwise normal MRI of the pituitary gland. Dictated by: Lm Casarez M.D. The radiology attending physician has personally reviewed this study, and had reviewed and/or edited this written report and agrees with it. Electronically signed by: Kacy Lala M.D. Narrative 11/25/2024 12:20 PM COMPOSITE BOND WORKER EXAMINATION: Magnetic resonance imaging (MRI) of the [...] evaluated on prior exams. Procedure Note Kacy Lala MD - 11/25/2024 EXAMINATION: Magnetic resonance imaging [...] * US Outside Reference (11/23/2024 3:58 PM COMPOSITE BOND WORKER) Impressions [facility] - 11/23/2024 3:58 PM COMPOSITE BOND WORKER These images are for Reference purposes only and have not been reviewed by [facility]. There will be no report generated by a [facility] Radiologist. Narrative [facility] - 11/23/2024 3:58 PM COMPOSITE BOND WORKER EXAMINATION: Images For Reference Purposes Only us Dariana Brothers MD IMG US PROCEDURES Final Result [facility] * PORTABLE/HOME SLEEP STUDY (11/16/2024 10:00 PM COMPOSITE BOND WORKER) Narrative Janet Griffin MD - 11/16/2024 10:00 PM COMPOSITE BOND WORKER Janet Griffin MD 11/25/2024 7:24 AM Portable/Home Sleep Study Date/Time: 11/16/2024 10:00 PM Performed by: Janet Griffin MD Authorized by: Janet Griffin MD us Janet Griffin MD SLEEP CENTER ORDERABLES Aurelia l Result * EGD (11/11/2024 2:08 PM COMPOSITE BOND WORKER) Anatomical Region Laterality Modality Other Narrative Procedure Note Buck Baron MD - 11/11/2024 2:08 PM [facility] END[facility] Patient Name: Yana Dixon Procedure Date: 11/11/2024 2:08 PM Date of : 1970 Admit Type: Outpatient Age: 54 Gender: Female Attending MD: Buck Baron M.D. Room: [facility] ENDOSCOPY ROOM 9 Note Status: Finalized Procedure: [...] passed under direct vision. The [id number] [id number] endoscope was introduced through the mouth, and [...] the days following this procedure please call [phone] ask for my nurse, Cassandra Silva. After hours and evenings please call [phone] and speak to theGI fellow retail and promotions coordinator. Please tell the fellow that Dr. Baron did your procedure and that you were instructed to have the fellow call me or thephysician covering for me to discuss the management of your condition. If you have an urgent problem, please goto the nearest emergency room and have the ER doctorcall my office during the day or [facility] transfer ([phone]) center after hours and weekends to arrange admission or transfer to our facility. Attending Participation: I personally performed the entire procedure. Electronically signed by Buck Baron MD Buck Baron M.D. 11/11/2024 2:36:57 PM . Number of Addenda: 0 Note Initiated On: 11/11/2024 2:08 PM us Buck Baron MD ENDOSCOPY PROCEDURES Final Result * XR Chest Pa Lateral 2 Views (10/26/2024 10:40 AM COMPOSITE BOND WORKER) Anatomical Region Laterality Modality Body, Chest N/A Computed Radiogr aphy 10/26/2024 10:4 3 AM COMPOSITE BOND WORKER Impressions 10/26/2024 10:43 AM COMPOSITE BOND WORKER No prior radiographs are available for comparison. Lungs are clear. No pleural effusion. No pneumothorax. Normal heart size. Electronically signed by: Catherine Serrano M.D. Narrative 10/26/2024 10:43 AM COMPOSITE BOND WORKER EXAMINATION: 2 view chest radiograph Procedure Note Catherine Serrano MD - 10/26/2024 EXAMINATION: 2 view chest radiograph IMPRESSION: No prior radiographs are available for comparison. Lungs are clear. No pleural effusion. No pneumothorax. Normal heart size. Electronically signed by: Catherine Serrano M.D. Janet Griffin MD IMG XR PROCEDURES Final Resu lt * Pulmonary Function Test - (10/26/2024 9:40 AM COMPOSITE BOND WORKER) FVC PRE 4.07 L [facility] FVC %PRE PRED 117 % [facility] FEV1 PRE 3.15 L [facility] FEV1 %PRE PRED 114 % [facility] FEV1/FVC PRE 77.4 % [facility] DLCO PRE 26.5 ml/min/mmH g [facility] DLCO %PRE PRED 122 % [facility] Anatomical Region Laterality Modality PFT 10/26/2024 9:15 AM COMPOSITE BOND WORKER Narrative 10/26/2024 3:35 PM COMPOSITE BOND WORKER Table formatting from the original result was not included. [facility] Division of Pulmonary & Critical Care Medicine [address] [place] [address]; [place] [facility]; [place] [address]; [phone] Pulmonary Function Laboratory Pulmonary Stress Test Simple/Oxygen [...] Work [distance (m) x body wt (kg)]: 18741 kg.m (normal >60,000kg.m) Oxygen required to maintain [...] with the written final report. PFT performed at:->[facility] Adult PFT Lab- [facility] Procedure:->Oxygen Assessment Titration [...] and %HbO2 is age dependent. However, the [facility] Pulmonary Function Laboratory defines hypoxemia as a PaO2 <56 mm Hg or a %HbO2 <89%. Starting on September of 2024 the [facility] Pulmonary Function Laboratory utilizes race neutral GLI Global normative equations. us Janet Griffin MD PFT ORDERABLES Final Result * CTA Head Neck W WO Contrast (10/18/2024 8:08 AM COMPOSITE BOND WORKER) Anatomical Region Laterality Modality Head and Neck N/A Computed Tomogra phy 10/18/2024 8:55 AM COMPOSITE BOND WORKER Impressions 10/18/2024 10:41 AM COMPOSITE BOND WORKER 1. No acute intracranial process. 2. 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 Dictated by: Mercy Spears MD, PhD. The radiology attending physician has personally reviewed this study, and had reviewed and/or edited this written report and agrees with it. Electronically signed by: Juice Floyd MD Narrative 10/18/2024 10:41 AM COMPOSITE BOND WORKER EXAMINATION: 1. Computed tomography angiography (CTA) of [...] narrowing or filling defects are identified. The kqzznn-[id number] is complete. The anterior and middle cerebral [...] narrowing or filling defects are identified. The bgmhcs-do-Yroxod is complete. The anterior and middle cerebral [...] it. Electronically signed by: Juice Floyd MD Ana Mckeon PHYSICAL TRAINER IMG CT PROCEDURES Final Re sult * POCT creatinine (10/18/2024 7:29 AM COMPOSITE BOND WORKER) Creatinine POC 0.9 0.6 - 1.1 mg/dL Blood 10/18/2024 7:29 AM COMPOSITE BOND WORKER 10/18/2024 7:29 AM COMPOSITE BOND WORKER us Self Referral LAB POCT ORDERABLES - DEVICE Fin al Result NIRMALA [facility]andra [facility] Department [place] [address] * US Carotids Duplex Bilateral (09/30/2024 2:49 PM COMPOSITE BOND WORKER) Anatomical Region Laterality Modality Vascular Bilateral Ultrasound 09/30/2024 3:09 PM COMPOSITE BOND WORKER Impressions 09/30/2024 3:09 PM COMPOSITE BOND WORKER 1. Bilateral internal carotid artery stenosis estimated at less than 50%. 2. There is antegrade flow in both vertebral arteries. Electronically signed by: Lm Vail M.D. Narrative 09/30/2024 3:09 PM COMPOSITE BOND WORKER EXAMINATION: BILATERAL CAROTID DUPLEX EXAM DATE: 09/30/2024 [...] arteries. Electronically signed by: Lm Vail M.D. us Reed Casanova MD IMG US PROCEDURES Final Resu lt * CTA Chest Abdomen Pelvis (09/30/2024 2:17 PM COMPOSITE BOND WORKER) Anatomical Region Laterality Modality Body N/A Computed Tomogra phy 09/30/2024 2:34 PM COMPOSITE BOND WORKER Impressions 09/30/2024 2:34 PM COMPOSITE BOND WORKER Mild wall thickening of the infrarenal abdominal aorta. Possible vasculitis. Mild beading of the SMA branches and bilateral iliac arteries possible fibromuscular dysplasia or vasculitis. Colonic diverticulosis. Minimal right lower lobe tree-in-bud infiltrate. Electronically signed by: Ash Perkins M.D. Narrative 09/30/2024 2:34 PM COMPOSITE BOND WORKER EXAMINATION: CTA CHEST ABDOMEN PELVIS DATE: 09/30/2024 [...] Neuro CT Outside Reference (09/29/2024 2:54 PM COMPOSITE BOND WORKER) Impressions [facility] - 09/29/2024 2:54 PM COMPOSITE BOND WORKER These images are for Reference purposes only and have not been reviewed by [facility]. There will be no report generated by a [facility] Radiologist. Narrative [facility] - 09/29/2024 2:54 PM COMPOSITE BOND WORKER EXAMINATION: Images For Reference Purposes Only us Ana Mckeon NP IMG CT PROCEDURES Final Re sult [facility] from Last 3 Months Insurance [facility] CMR [facility] CMR [facility] Advance Directives For more information, please contact: [phone] * Full Code (Latest Code Status on File) Date Activated Date Inactivated Comments 11/11/2024 1:19 PM 11/11/2024 9:23 PM Care Teams Benefits Manager Relationship Specialty Start Date End Date Shabnam Farnsworth MD [address] [facility] [address] [place] [address] PCP - General Family Medicine 10/18/24 Adi Recio MD [address] [address] Referring Physician Obstetrics and Gynecology 09/08/22 Stephanie York MD [address] [facility] [address] [place] [id number] Rheumatology 10/10/24 Lexi Escobar, RN Registered Nurse Pulmonary Disease 10/28/24
== END 2024-12-20 07:52 | disposition home or self-care (01) ==
PROVIDERS: Visit Provider Podiatrist Foot & Ankle Surgery
DX: I73.9 Peripheral vascular disease, unspecified (principal)
CPT/HCPCS: 93923